=== PATIENT | male | born 1955 | race African-American/Black ===

== ENCOUNTER 2017-07-02 21:24 | Emergency (ER) | payer OTHER, BC ==
[2017-07-02 21:57] VITALS: BP 145/89; PULSE 104; TEMP 98; BMI 26.4
--- NOTE | 2017-07-02 23:04 | PDOC ---
History of Present Illness - General Chief Complaint: Chest Pain Stated Complaint: Allergic Reaction Time Seen by Provider: 07/02/17 21:46 - History of Present Illness Initial Comments: 07/02/17 22:57 61M w/ hx of GERD and an "irregular heartbeat" presenting with acute cannabis intoxication. Pt reports that he ate one brownie with marijuana today and experienced tachycardia, palpitations, tachypnea, several episodes of emesis, dry mouth, and jitteriness a half hour later. He reports not using marijuana since he was a teenager. He denies fevers, chills, headache, abdominal pain, and dysuria. 07/02/17 23:15 Past History - Past Medical History Allergies/Adverse Reactions: Allergies Allergy/AdvReac Type Severity Reaction Status Date / Time No Known Drug Allergies Allergy Verified 07/02/17 21:53 Home Medications: Ambulatory Orders Atenolol [Tenormin -] 25 mg PO DAILY 12/03/13 Omeprazole 40 mg PO HS 12/03/13 Oxycodone HCl/Acetaminophen [Percocet 5-325 mg Tablet] 1 tab PO Q4H PRN Tamsulosin HCl [Flomax -] 0.4 mg PO HS 12/03/13 Oxybutynin Chloride [Ditropan Xl] 10 mg PO DAILY 12/09/13 Oxycodone HCl/Acetaminophen [Percocet 5/325] 1 - 2 combo PO Q4HWA PRN #40 tablet 12/10/13 Anemia: No Asthma: No Cancer: No Cardiac Disorders: Yes (IRREGULAR HEART BEAT) CVA: No COPD: No CHF: No Dementia: No Diabetes: No GI Disorders: Yes (REFLUX,GASTRITIS,GERD) Disorders: Yes (ENLARGED PROSTATE) HTN: No Hypercholesterolemia: No Liver Disease: No Seizures: No Thyroid Disease: No Comment:: 07/02/17 23:01 PMH: GERD, irregular heartbeat PSH: ventral hernia repair, tendon transfer operation on L arm, meniscus surgery , 2 arthroscopic surgeries Meds: omeprazole, atenolol Allergies: NKDA Fam Hx: HTN and heart disease Social Hx: drinks alcohol socially, denies tobacco and other drug use 07/02/17 23:06 - Surgical History Abdominal Surgery: Yes (VENTRAL HERNIA REPAIR) Appendectomy: No Cardiac Surgery: No Cholecystectomy: No Lung Surgery: No Neurologic Surgery: No Orthopedic Surgery: Yes (BILAT ARTHROSCOPY, TWICE R KNEE) - Psycho/Social/Smoking Cessation Hx Suicidal Ideation: No Smoking History: Former smoker Have you smoked in the past 12 months: No If you are a former smoker, when did you quit?: 1974 Information on smoking cessation initiated: No Hx Alcohol Use: Yes (WEEKENDS) Drug/Substance Use Hx: No Substance Use Type: Alcohol, Marijuana Hx Substance Use Treatment: No Review of Systems - Review of Systems Comments:: 07/02/17 23:07 07/02/17 23:11 GENERAL: No fever, chills, night sweats, or weakness. HEAD, EYES, EARS, NOSE AND THROAT: No ear pain, or sore throat CARDIOVASCULAR: No chest pain, + palpitations RESPIRATORY: No cough, wheezing, or hemoptysis. GASTROINTESTINAL: + nausea, + vomiting, no diarrhea, constipation, or blood in the stool. GENITOURINARY: No dysuria, frequency, or urgency MUSCULOSKELETAL: No joint or muscle swelling or pain. SKIN: No rashes or pruritis ENDOCRINE: + increased thirst. No abnormal weight change NEUROLOGIC: No headache, dizziness, loss of consciousness *Physical Exam - Vital Signs Last Vital Signs Temp Pulse Resp BP Pulse Ox 98 F 104 H 20 145/89 93 L 07/02/17 21:53 07/02/17 21:53 07/02/17 21:53 07/02/17 21:53 07/02/17 21:53 - Physical Exam Comments: 07/02/17 23:12 GENERAL: Awake, fully oriented, in no acute distress HEAD: normocephalic, atraumatic HEENT: PERRLA, EOMI, eyes are bloodshot, dry mouth NECK: Normal ROM, supple, no lymphadenopathy, JVD, or masses HEART: tachycardic, no murmurs, rubs or gallops, peripheral pulses normal and equal bilaterally. LUNGS: CTAB, no wheezing, no rales ABDOMEN: Soft, nontender, nondistended, normoactive bowel sounds. No guarding, no rebound. No masses EXTREMITIES: Normal range of motion, no edema. SKIN: Warm, dry, no rashes or lesions noted. NEUROLOGICAL: Cranial nerves II through XII grossly intact. slow speech, + dysdiadochokinesia, + [id number] test, normal strength Medical Decision Making - Medical Decision Making 07/02/17 23:15 61M w/ hx of GERD and an "irregular heartbeat" presenting with acute cannabis intoxication with tachycardia, tachypnea, palpitations, nausea, and emesis. Exam notable for tachycardia, dry mouth, slowed speech, and + cerebellar signs. Given 2 versed, 25 benadryl, and 500cc of NS en route. -CBC: -CMP: -EK07/02/17 23:17
--- NOTE | 2017-07-02 23:14 | PDOC ---
Attending Attestation - Resident Resident Name: Art Ocampo - ED Attending Attestation I have performed the following: I have examined & evaluated the patient, The case was reviewed & discussed with the resident, I agree w/resident's findings & plan, Exceptions are as noted - HPI HPI: 07/02/17 23:07 Pt admits eat a pot brownie and then feeling palpitations and agitated. Pt brought in by EMS who gave Versed, Benadryl and IVF. Pt feeling better. - Physicial Exam PE: 07/02/17 23:06 *Physical Exam General Appearance: Yes: Appropriately Dressed. No: Apparent Distress, Intoxicated HEENT: positive: EOMI, KELVIN, Normal ENT Inspection, Normal Voice, TMs Normal, Pharynx Normal. negative: Pale Conjunctivae, Photophobia, Scleral Icterus (R), Scleral Icterus (L) Neck: positive: Trachea midline, Normal Thyroid, Supple. negative: Tender, Rigid, Carotid bruit, Stridor, Lymphadenopathy (R), Lymphadenopathy (L), Thyromegaly Respiratory/Chest: positive: Lungs Clear, Normal Breath Sounds. negative: Chest Tender, Respiratory Distress, Accessory Muscle Use, Labored Respiration, RES, Crackles, Rales, Rhonchi, Stridor, Wheezing, Dullness Cardiovascular: positive: tachycardic Regular Rate, S1, S2. negative: Edema, JVD, Murmur, Bradycardia, Tachycardia Vascular Pulses: Dorsalis-Pedis (R): 2+, Doralis-Pedis (L): 2+ Gastrointestinal/Abdominal: positive: Normal Bowel Sounds, Flat, Soft. negative : Tender, Organomegaly, Pulsatile Mass, Increased Bowel Sounds, Decreased BS, Distended, Guarding, Rebound, Hernia, Hepatomegaly, Spleenomegaly Lymphatic: negative: Adenopathy, Tenderness Musculoskeletal: positive: Normal Inspection. negative: CVA Tenderness, Decreased Range of Motion Extremity: positive: Normal Capillary Refill, Normal Inspection, Normal Range of Motion, Pelvis Stable. negative: Tender, Pedal Edema, Swelling, Erythema Integumentary: positive: Normal Color, Dry, Warm. 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 negative: EOM Palsy, Facial Droop, Sensory Deficit - Medical Decision Making 07/03/17 00:22 Pt hydrated. Labs stable. VSS are here in the ER.
[2017-07-02 23:40] LABS: BASOPHIL 0.1 % (0-2.0); EOSINOPHIL 0.2 % (0-4.5); MCH 31.4 pg (25.7-33.7); MCHC 33.2 g/dl (32.0-35.9); MEAN CELL VOLUME 94.8 fl (80-96); MEAN PLT VOLUME 7.8 fl (7.5-11.1); NEUTROPHILS 80.4 % (42.8-82.8); PLATELET COUNT 157 K/MM3 (134-434); WHITE BLOOD COUNT 5.9 K/mm3 (4.0-10.0)
[2017-07-03 00:01] LABS: ALBUMIN 3.8 g/dl (3.4-5.0); ALK PHOS 50 U/L (45-117); ANION GAP 8 (8-16); BILIRUBIN,TOTAL 0.8 mg/dL (0.2-1.0); CALCIUM 8.7 mg/dL (8.5-10.1); CO2 29 mmol/L (21-32); CREATININE 1.1 mg/dL (0.7-1.3); GLUCOSE,RANDOM 90 mg/dL (74-106); SGOT/AST 26 U/L (15-37); SGPT/ALT 33 U/L (12-78); TOT PROT 6.7 g/dl (6.4-8.2)
[2017-07-03] MEDS ORDERED: SODIUM CHLORIDE 1,000 ML IV STA (00:18)
--- NOTE | 2017-07-03 00:23 | PDOC ---
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, Fully Oriented, Alert ED Treatment Course - LABORATORY CBC & Chemistry Diagram: 07/02/17 23:15 07/02/17 23:15 - ADDITIONAL ORDERS Additional order review: Laboratory Results 07/02/17 23:15 Sodium 142 Potassium 4.3 Chloride 105 Carbon Dioxide 29 Anion Gap 8 BUN 17 D Creatinine 1.1 D Creat Clearance w eGFR > 60 Random Glucose 90 Calcium 8.7 Total Bilirubin 0.8 D AST 26 D ALT 33 D Alkaline Phosphatase 50 Total Protein 6.7 Albumin 3.8 07/02/17 23:15 RBC 4.10 MCV 94.8 MCHC 33.2 RDW 13.0 MPV 7.8 Neutrophils % 80.4 D Lymphocytes % 11.5 D Monocytes % 7.8 Eosinophils % 0.2 D Basophils % 0.1 Medical Decision Making - Medical Decision Making 07/03/17 00:23 Patient is a 63 y.o. male who presents with palpitations and chest pain following ingestion of a cannabis brownie given to him by his neighbor.. Patient was initially tachycardic and given 1 L IV NS as well as Benadryl and Versed for symptomatic relief. Patient's tachycardia resolved during course of ED admission and his only complaint at discharge was hunger. Patient was counseled on the importance of avoiding cannabis in the future given his adverse reaction and counseled on the importance of avoiding peer pressure. *DC/Admit/Observation/Transfer Diagnosis at time of Disposition: Acute cannabis intoxication delirium without use disorder - Discharge Dispostion Disposition: HOME Condition at time of disposition: Improved Admit: No - Patient Instructions Printed Discharge Instructions: DI for Chest Pain, DI for Atypical Chest Pain Additional Instructions: Please return to the Emergency Department should you experience severe pressure like chest pain, shortness of breath, excessive sweating or confusion. Please consider refraining from future cannabis use given your physical reaction. - Attestations Physician Attestion: 07/03/17 00:32 I, Dr. Antonia Ponce, attest that this document has been prepared under my direction and personally reviewed by me in its entirety. I further attest, that it accurately reflects all work, treatment, procedures and medical decision -making performed by me.
--- NOTE | 2017-07-03 11:56 | EKG ---
Test Reason : Blood Pressure : / mmHG Vent. Rate : 099 BPM Atrial Rate : 099 BPM P-R Int : 142 ms QRS Dur : 078 ms QT Int : 348 ms P-R-T Axes : 031 -27 -01 degrees QTc Int : 446 ms NORMAL SINUS RHYTHM MODERATE VOLTAGE CRITERIA FOR LVH, MAY BE NORMAL VARIANT LEFT AXIS DEVIATION BORDERLINE ECG WHEN COMPARED WITH ECG OF 03-DEC-2013 16:43, QT HAS LENGTHENED REPEAT EKG IF CLINICALLY INDICATED Confirmed by POLLO GRIFFIN MD ([id number]) on 07/03/2017 11:55:24 AM Referred By: Confirmed By:POLLO GRIFFIN MD
== END 2017-07-03 01:27 | disposition home or self-care (01) ==
LOC: JER 21:24
PROC: 3E0337Z Introduction of Electrolytic and Water Balance Substance into Peripheral Vein, Percutaneous Approach (ICD-10-PCS; principal; 2017-07-02)
DX: F12.921 Cannabis use, unspecified with intoxication delirium (principal); K21.9 Gastro-esophageal reflux disease without esophagitis; I49.9 Cardiac arrhythmia, unspecified; N40.0 Benign prostatic hyperplasia without lower urinary tract symptoms; Z87.891 Personal history of nicotine dependence
CPT/HCPCS: 36415; 80053; 85025; 93005; 93010; 99282-25

== ENCOUNTER 2017-07-19 23:19 | Emergency (ER) | payer OTHER, BC ==
[2017-07-19 23:37] VITALS: BP 107/77; PULSE 97; TEMP 98.2; BMI 23.6
[2017-07-20] MEDS ORDERED: PANTOPRAZOLE SODIUM 40 MG in SODIUM CHLORIDE 100 ML IVPB ONE (00:04)
[2017-07-20] MEDS ORDERED: ONDANSETRON 4 MG/2 ML VIAL IVPUSH ONE (00:04)
[2017-07-20] MEDS ORDERED: LIDOCAINE HCL 1%, 10 MG/ML (50 mL VIAL) INF ONE (00:05)
[2017-07-20] MEDS ORDERED: FAMOTIDINE 20 MG/50 ML IVPB 50 ML IVPB ONE ×2 (00:05→00:16)
[2017-07-20 00:08] LABS: BASOPHIL 0.4 % (0-2.0); EOSINOPHIL 1.7 % (0-4.5); MCH 31.8 pg (25.7-33.7); MCHC 33.6 g/dl (32.0-35.9); MEAN CELL VOLUME 94.6 fl (80-96); MEAN PLT VOLUME 7.6 fl (7.5-11.1); NEUTROPHILS 61.9 % (42.8-82.8); PLATELET COUNT 181 K/MM3 (134-434); RDW 12.8 % (11.9-15.9); WHITE BLOOD COUNT 3.6 K/mm3 (4.0-10.0)
[2017-07-20] MEDS ORDERED: ONDANSETRON 4 MG/2 ML VIAL ONE (00:16)
[2017-07-20] MEDS ORDERED: PANTOPRAZOLE SODIUM 40 MG VIAL ONE (00:16)
[2017-07-20 00:42] LABS: ALBUMIN 4.1 g/dl (3.4-5.0); AMYLASE 57 U/L (25-115); ANION GAP 8 (8-16); BILIRUBIN,TOTAL 0.6 mg/dL (0.2-1.0); CALCIUM 8.8 mg/dL (8.5-10.1); CO2 28 mmol/L (21-32); CREATININE 1.5 mg/dL (0.7-1.3); GLUCOSE,RANDOM 97 mg/dL (74-106); SGOT/AST 41 U/L (15-37); SGPT/ALT 45 U/L (12-78); TOT PROT 7.2 g/dl (6.4-8.2)
[2017-07-20 00:45] LABS: ALK PHOS 51 U/L (45-117); CPK 905 IU/L (39-308); TROPONIN I < 0.02 ng/ml (0.00-0.05)
--- NOTE | 2017-07-20 00:56 | PDOC ---
History of Present Illness - General Chief Complaint: Nausea/Vomiting Stated Complaint: ACID REFLUX Time Seen by Provider: 07/19/17 23:46 History Source: Patient Exam Limitations: No Limitations - History of Present Illness Travel History: No Initial Comments: 07/20/17 00:51 61yo Male patient w/ PmHx: HTN, GERD presents to ED c/o belching, heartburn, n/v , and abdominal pain beginning this morning. Patient reports similar symptoms previously and was treated in ED and sent home. Patient denies CP, Diff breathing, fever, rash, or any other complaints at this time. Timing/Duration: reports: constant Quality: reports: moderate, burning Abdominal Pain Onset Location: reports: generalized abdomen Pain Radiation: reports: no radiation Activities at Onset: reports: none Treatment Prior to Arrive: worse with: analgesics, antacids, cold pack, heat, laxative, enema, other Aggravating Factors: worse with: None, Defecation, Eating, Emotional upset, Exertion, [place], Movement, Voiding, Change in position Alleviating Factors: worse with: None, Belching, Shallow Breathing, Defecation, Eating, Holding Breath, Passing Gas, Change in Position, Rest, Voiding, Vomiting Past History - Travel Traveled outside of the country in the last 30 days: No Close contact w/someone who was outside of country & ill: No - Past Medical History Allergies/Adverse Reactions: Allergies Allergy/AdvReac Type Severity Reaction Status Date / Time No Known Drug Allergies Allergy Verified 07/19/17 23:36 Home Medications: Ambulatory Orders Atenolol [Tenormin -] 25 mg PO DAILY 12/03/13 Omeprazole 40 mg PO HS 12/03/13 Tamsulosin HCl [Flomax -] 0.4 mg PO HS 12/03/13 Oxybutynin Chloride [Ditropan Xl] 10 mg PO DAILY 12/09/13 Oxycodone HCl/Acetaminophen [Percocet 5/325] 1 - 2 combo PO Q4HWA PRN #40 tablet 12/10/13 Acetaminophen W/ Codeine #3 [Tylenol # 3 -] 1 tab PO ONCE 07/20/17 Famotidine [Pepcid] 40 mg PO BID #14 tablet 07/20/17 Losartan Potassium [Cozaar -] 25 mg PO DAILY 07/20/17 Ondansetron [Zofran Odt -] 4 mg SL Q6H PRN #30 od.tablet 07/20/17 Pantoprazole Sodium [Protonix -] 40 mg PO DAILY #30 tablet.ec 07/20/17 Rabeprazole Sodium [Aciphex] 20 mg PO ASDIR 07/20/17 Anemia: No Asthma: No Cancer: No Cardiac Disorders: Yes (IRREGULAR HEART BEAT) CVA: No COPD: No CHF: No Dementia: No Diabetes: No GI Disorders: Yes (REFLUX,GASTRITIS,GERD) Disorders: Yes (ENLARGED PROSTATE) HTN: No Hypercholesterolemia: No Liver Disease: No Seizures: No Thyroid Disease: No - Surgical History Abdominal Surgery: Yes (VENTRAL HERNIA REPAIR) Appendectomy: No Cardiac Surgery: No Cholecystectomy: No Lung Surgery: No Neurologic Surgery: No Orthopedic Surgery: Yes (BILAT ARTHROSCOPY, TWICE R KNEE) - Psycho/Social/Smoking Cessation Hx Suicidal Ideation: No Smoking History: Never smoked Have you smoked in the past 12 months: No If you are a former smoker, when did you quit?: 1974 Information on smoking cessation initiated: No Hx Alcohol Use: No Drug/Substance Use Hx: No Substance Use Type: Alcohol, Marijuana Hx Substance Use Treatment: No Abd/GI Specific PMHX - Complaint Specific PMHX Colitis: No Diverticulitis: No Gall Bladder Disease: No GERD: No Hepatitis: No Irritable Bowel Synd (IBS): No Pancreatitis: No GI Ulcer Disease: No Review of Systems - Review of Systems Able to Perform ROS?: Yes Is the patient limited Italian proficient: No Respiratory: No: Cough, Shortness of Breath, Wheezing, Productive cough Cardiac (ROS): No: Chest Pain, Edema, Irregular Heart Rate, Lightheadedness, Palpitations, Syncope, Chest Tightness ABD/GI: Yes: Abdominal Distended, Nausea, Vomiting, Abdominal cramping, Other ( Belching). No: Abd. Pain w/ defecation, Constipated, Diarrhea, Difficulty Swallowing, Poor Appetite, Poor Fluid Intake, Rectal Bleeding All Other Systems: Reviewed and Negative *Physical Exam - Vital Signs Last Vital Signs Temp Pulse Resp BP Pulse Ox 98.2 F 97 H 20 107/77 98 07/19/17 23:36 07/19/17 23:36 07/19/17 23:36 07/19/17 23:36 07/19/17 23:36 - Physical Exam General Appearance: Yes: Nourished, Appropriately Dressed, Mild Distress. No: Apparent Distress, Moderate Distress, Severe Distress Neck: positive: Trachea midline, Supple. negative: Decreased range of motion, Stridor, Lymphadenopathy (R), Lymphadenopathy (L), Rigidity Respiratory/Chest: positive: Lungs Clear, Normal Breath Sounds. negative: Chest Tender, Respiratory Distress, Accessory Muscle Use, Labored Respiration, Rapid RR, Crackles, Stridor, Wheezing Cardiovascular: positive: Regular Rhythm, Regular Rate Gastrointestinal/Abdominal: positive: Soft, Decreased BS, Distended. negative: Tender, Guarding, Rebound, Tenderness Musculoskeletal: positive: Normal Inspection. negative: CVA Tenderness Extremity: positive: Normal Capillary Refill, Normal Inspection, Normal Range of Motion. negative: Pedal Edema, Swelling, Calf Tenderness, Erythema, Inflammation Integumentary: positive: Normal Color, Dry, Warm. 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, Fully Oriented, Alert, Normal Mood/ Affect, Normal Response, Motor Strength 5/5 Heart Score/ECG Review - History History: Slightly suspicious - Electrocardiogram EKG: Normal - Age Age: 45-65 - Risk Factors Risk Factors Heart Score: Yes Hx Hypercholesterolemia, Yes Hx Hypertension Based on the list above the patient has:: 1-2 risk factors - Troponin Troponin: </= normal limit - Score Heart Score - Total: 2 - ECG Impressions Normal ECG: Yes Non-specific ST Elevation: No Ischemic Changes: No Torsades lupe Pointes: No WPW: No ED Treatment Course - LABORATORY CBC & Chemistry Diagram: 07/20/17 00:04 07/20/17 00:04 - ADDITIONAL ORDERS Additional order review: Laboratory Results 07/20/17 00:04 Sodium 140 Potassium 3.9 Chloride 104 Carbon Dioxide 28 Anion Gap 8 BUN 15 Creatinine 1.5 H D Creat Clearance w eGFR 47.42 Random Glucose 97 Calcium 8.8 Total Bilirubin 0.6 D AST 41 H D ALT 45 D Alkaline Phosphatase 51 Creatine Kinase 905 H Troponin I < 0.02 Total Protein 7.2 Albumin 4.1 Total Amylase 57 Lipase 63 L 07/20/17 00:04 RBC 4.14 MCV 94.6 MCHC 33.6 RDW 12.8 MPV 7.6 Neutrophils % 61.9 D Lymphocytes % 25.9 D Monocytes % 10.1 Eosinophils % 1.7 D Basophils % 0.4 D - RADIOLOGY Radiology Studies Ordered: Category Date Time Status ABDOMEN & PELVIS CT W/O CONTR [CT] Stat CT Scan 07/20/17 00:05 Ordered - Medications Given in the ED: ED Medications Discontinued Medications Generic Name Dose Route Start Last Admin Trade Name Freq PRN Reason Stop Dose Admin Pantoprazole Sodium 40 mg/ 100 mls @ 200 mls/hr 07/20/17 00:04 07/20/17 00:23 Sodium Chloride IVPB 07/20/17 00:33 200 mls/hr ONCE ONE Administration Famotidine/Sodium Chloride 50 mls @ 100 mls/hr 07/20/17 00:05 07/20/17 00:23 Pepcid 20 Mg Premixed Ivpb - IVPB 07/20/17 00:34 100 mls/hr ONCE ONE Administration Lidocaine HCl 3 ml 07/20/17 00:05 07/20/17 00:34 Xylocaine 1% INF 07/20/17 00:06 3 ml ONCE ONE Administration Ondansetron HCl 4 mg 07/20/17 00:04 07/20/17 00:23 Zofran Injection IVPUSH 07/20/17 00:05 4 mg ONCE ONE Administration *DC/Admit/Observation/Transfer Diagnosis at time of Disposition: Gastroesophageal reflux disease Qualifiers: Esophagitis presence: without esophagitis Qualified Code(s): K21.9 - Gastro- esophageal reflux disease without esophagitis - Discharge Dispostion Disposition: HOME Condition at time of disposition: Improved Admit: No - Prescriptions Prescriptions: Famotidine [Pepcid] 40 mg PO BID #14 tablet Pantoprazole Sodium [Protonix -] 40 mg PO DAILY #30 tablet.ec Ondansetron [Zofran Odt -] 4 mg SL Q6H PRN #30 od.tablet PRN Reason: Nausea - Patient Instructions Printed Discharge Instructions: DI for Vomiting -- Adult Additional Instructions: Follow up with your primary care provider this week. Call to schedule appointment. Take medications as prescribed. Return if any concerns for further evaluation. Print Language: MALTESE
[2017-07-20 01:57] LABS: URINE APPEARANCE CLEAR; URINE BILIRUBIN NEGATIVE (NEGATIVE); URINE BLOOD NEGATIVE (NEGATIVE); URINE COLOR COLORLESS; URINE GLUCOSE (UA) NEGATIVE (NEGATIVE); URINE KETONE NEGATIVE (NEGATIVE); URINE LEUK ESTERASE NEGATIVE (NEGATIVE); URINE NITRITE NEGATIVE (NEGATIVE); URINE PROTEIN NEGATIVE (NEGATIVE); URINE UROBILINOGEN NEGATIVE mg/dL (0.2-1.0)
--- NOTE | 2017-07-21 13:58 | EKG ---
Test Reason : Blood Pressure : / mmHG Vent. Rate : 076 BPM Atrial Rate : 076 BPM P-R Int : 142 ms QRS Dur : 078 ms QT Int : 406 ms P-R-T Axes : 048 -26 -05 degrees QTc Int : 456 ms NORMAL SINUS RHYTHM BASELINE ARTIFACTS MINIMAL VOLTAGE CRITERIA FOR LVH, MAY BE NORMAL VARIANT BORDERLINE ECG WHEN COMPARED WITH ECG OF 02-JUL-2017 22:11, REPEAT EKG IF CLINICALLY INDICATED Confirmed by POLLO GRIFFIN MD ([id number]) on 07/21/2017 1:58:09 PM Referred By: Confirmed By:POLLO GRIFFIN MD
== END 2017-07-20 02:14 | disposition home or self-care (01) ==
LOC: JER 23:19
PROC: 3E033GC Introduction of Other Therapeutic Substance into Peripheral Vein, Percutaneous Approach (ICD-10-PCS; principal; 2017-07-19)
PROC: 3E033NZ Introduction of Analgesics, Hypnotics, Sedatives into Peripheral Vein, Percutaneous Approach (ICD-10-PCS; 2017-07-19)
DX: K21.9 Gastro-esophageal reflux disease without esophagitis (principal)
CPT/HCPCS: 36415; 74176-TC; 80053; 81003; 82150; 82553; 83690; 84484; 85025; 93005; 93010; 99283-25

== ENCOUNTER 2017-09-09 18:51 | Emergency (ER) | payer OTHER, BC ==
[2017-09-09 18:57] VITALS: BMI 28.1
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
[2017-09-09] MEDS ORDERED: DIPHTH,PERTUSS(ACELL),TET 0.5 ML DISP.SYRIN IM ONE (19:34)
[2017-09-09] MEDS ORDERED: CLINDAMYCIN 600MG PREMIX IVPB 50 ML IVPB ONE ×2 (19:35→19:50)
[2017-09-09] MEDS ORDERED: ONDANSETRON 4 MG/2 ML VIAL IVPUSH ONE (19:35)
[2017-09-09] MEDS ORDERED: FAMOTIDINE 20 MG/50 ML IVPB 50 ML IVPB ONE ×2 (19:35→19:48)
[2017-09-09] MEDS ORDERED: LIDOCAINE 1%/EPI 1:100000 (20 ML MULTI DOSE VIAL) IJ ONE (19:36)
[2017-09-09] MEDS ORDERED: LIDOCAINE 1%/EPI 1:100000 (20 ML MULTI DOSE VIAL) ONE (19:47)
[2017-09-09] MEDS ORDERED: ONDANSETRON 4 MG/2 ML VIAL ONE (19:48)
[2017-09-09 20:11] LABS: BASOPHIL 0.4 % (0-2.0); EOSINOPHIL 1.4 % (0-4.5); MCH 31.4 pg (25.7-33.7); MCHC 33.4 g/dl (32.0-35.9); MEAN CELL VOLUME 93.9 fl (80-96); MEAN PLT VOLUME 7.7 fl (7.5-11.1); PLATELET COUNT 162 K/MM3 (134-434); RDW 13.2 % (11.9-15.9); WHITE BLOOD COUNT 4.7 K/mm3 (4.0-10.0)
[2017-09-09] MEDS ORDERED: IBUPROFEN 600 MG TABLET (FP) PO ONE ×2 (20:58→22:11)
[2017-09-09 21:31] LABS: ALBUMIN 3.4 g/dl (3.4-5.0); ANION GAP 5 (8-16); BILIRUBIN,TOTAL 0.4 mg/dL (0.2-1.0); CO2 29 mmol/L (21-32); CREATININE 1.1 mg/dL (0.7-1.3); GLUCOSE,RANDOM 95 mg/dL (74-106); SGOT/AST 31 U/L (15-37); SGPT/ALT 31 U/L (12-78); TOT PROT 6.5 g/dl (6.4-8.2)
[2017-09-09 21:32] LABS: ALK PHOS 50 U/L (45-117)
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
[2017-09-10 00:19] VITALS: BP 152/74; PULSE 87; TEMP 98.5
--- NOTE | 2017-09-10 10:07 | EKG ---
Test Reason : Blood Pressure : / mmHG Vent. Rate : 074 BPM Atrial Rate : 074 BPM P-R Int : 138 ms QRS Dur : 078 ms QT Int : 394 ms P-R-T Axes : 050 -24 009 degrees QTc Int : 437 ms SINUS RHYTHM WITH OCCASIONAL PREMATURE VENTRICULAR COMPLEXES MODERATE VOLTAGE CRITERIA FOR LVH, MAY BE NORMAL VARIANT BORDERLINE ECG WHEN COMPARED WITH ECG OF 20-JUL-2017 01:56, PREMATURE VENTRICULAR COMPLEXES ARE NOW PRESENT Confirmed by STACIA BUCK, TABITHA ([id number]) on 09/10/2017 10:07:11 AM Referred By: Confirmed By:TABITHA PALOMO MD
== END 2017-09-10 00:19 | disposition home or self-care (01) ==
LOC: JER 18:51
PROC: 0JQ10ZZ Repair Face Subcutaneous Tissue and Fascia, Open Approach (ICD-10-PCS; principal; 2017-09-09)
PROC: 3E0234Z Introduction of Serum, Toxoid and Vaccine into Muscle, Percutaneous Approach (ICD-10-PCS; 2017-09-09)
PROC: 3E03329 Introduction of Other Anti-infective into Peripheral Vein, Percutaneous Approach (ICD-10-PCS; 2017-09-09)
PROC: 3E033GC Introduction of Other Therapeutic Substance into Peripheral Vein, Percutaneous Approach (ICD-10-PCS; 2017-09-09)
DX: S01.112A Laceration without foreign body of left eyelid and periocular area, initial encounter (principal); Y00.XXXA Assault by blunt object, initial encounter; Y93.89 Activity, other specified; Y92.89 Other specified places as the place of occurrence of the external cause; Y99.8 Other external cause status; I10 Essential (primary) hypertension; K21.9 Gastro-esophageal reflux disease without esophagitis; N40.0 Benign prostatic hyperplasia without lower urinary tract symptoms
CPT/HCPCS: 12011-25; 36415; 70450-TC; 70486-TC; 71020-TC; 72125-TC; 73130-TC-LT; 73130-TC-RT; 80053; 85025; 90471; 90715; 93005; 93010; 96365; 96367; 99284-25

== ENCOUNTER 2017-09-15 14:57 | Emergency (ER) | payer OTHER, BC ==
[2017-09-15 15:09] VITALS: BP 127/81; PULSE 90; TEMP 98.3; BMI 26.2
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
== END 2017-09-15 15:53 | disposition home or self-care (01) ==
LOC: JERFT 14:57
DX: Z48.02 Encounter for removal of sutures (principal)
CPT/HCPCS: 99281-25

== ENCOUNTER 2018-02-24 20:57 | Emergency (ER) | payer OTHER, BC ==
[2018-02-24 21:06] VITALS: PULSE 84; TEMP 98.1; BMI 26.4
--- NOTE | 2018-02-24 21:44 | PDOC ---
Attending Attestation - Resident Resident Name: DonellfrancialateshaMarty - HPI HPI: 02/24/18 22:41 Pt presents to the ED complaining of generalized malaise accompanied by epigastric pain and nausea and vomiting that started today. Patient describes the pain as burning, and has a long standing history of GERD, but reports that this pain is different from his chronic GERD pain. Denies fevers. - Physicial Exam PE: 02/24/18 22:48 Agree with resident exam. Abdomen is obese, with very mild tenderness to deep palpation in the epigastrium, without guarding or rebound. Patient appears comfortable and is in no acute distress. - Medical Decision Making 02/24/18 22:50 Pt presents to the ED complaining of a one day history of burning epigastric pain. Differential includes GERD, biliary disease, pancreatitis, PUD less likely ACS or AAA. Will check labs and RUQ US, treat with pepcid and reassess.
[2018-02-24] MEDS ORDERED: SODIUM CHLORIDE 0.9% 1000 ML INFUS.BAG IV ONE (21:53)
[2018-02-24] MEDS ORDERED: PANTOPRAZOLE SODIUM 40 MG in SODIUM CHLORIDE 100 ML IVPB ONE (21:53)
[2018-02-24] MEDS ORDERED: PANTOPRAZOLE SODIUM 40 MG/100 ML BAG IVPB ONE (22:20)
--- NOTE | 2018-02-24 22:26 | PDOC ---
History of Present Illness - General Chief Complaint: Nausea/Vomiting Stated Complaint: NAUSEA/VOMITING Time Seen by Provider: 02/24/18 21:42 History Source: Patient Exam Limitations: No Limitations - History of Present Illness Initial Comments: 02/24/18 22:15 The patient is a 62M with a PMH of HTN and GERD who presents to the ER with complaints of "feeling sick". The patient states that he began to feel nausea, vomited 3 times NBNB, and has abdominal pain. He describes his abdominal pain as dull, periumbilical, nonradiating pain which is constant and then becomes intermittently sharp. His last BM was yesterday. He has had an abdominal hernia repaired in the past. He does admit to being more constipated recently. Denies CP, SOB, fever but states he has chills. Past History - Past Medical History Allergies/Adverse Reactions: Allergies Allergy/AdvReac Type Severity Reaction Status Date / Time No Known Drug Allergies Allergy Verified 02/24/18 21:02 Home Medications: Ambulatory Orders Atenolol [Tenormin -] 25 mg PO DAILY 12/03/13 Omeprazole 40 mg PO HS 12/03/13 Tamsulosin HCl [Flomax -] 0.4 mg PO HS 12/03/13 Famotidine [Pepcid] 40 mg PO BID #14 tablet 07/20/17 Ondansetron [Zofran Odt -] 4 mg SL Q6H PRN #30 od.tablet 07/20/17 Pantoprazole Sodium [Protonix -] 40 mg PO DAILY #30 tablet.ec 07/20/17 Rabeprazole Sodium [Aciphex] 20 mg PO ASDIR 07/20/17 Anemia: No Asthma: No Cancer: No Cardiac Disorders: Yes (IRREGULAR HEART BEAT) CVA: No COPD: No CHF: No Dementia: No Diabetes: No GI Disorders: Yes (REFLUX,GASTRITIS,GERD) Disorders: Yes (ENLARGED PROSTATE) HTN: Yes Hypercholesterolemia: Yes Liver Disease: No Seizures: No Thyroid Disease: No - Surgical History Abdominal Surgery: Yes (VENTRAL HERNIA REPAIR) Appendectomy: No Cardiac Surgery: No Cholecystectomy: No Lung Surgery: No Neurologic Surgery: No Orthopedic Surgery: Yes (BILAT ARTHROSCOPY, TWICE R KNEE) - Suicide/Smoking/Psychosocial Hx Smoking History: Former smoker Have you smoked in the past 12 months: No If you are a former smoker, when did you quit?: 1974 Information on smoking cessation initiated: No Hx Alcohol Use: No Drug/Substance Use Hx: No Substance Use Type: Alcohol, Marijuana Hx Substance Use Treatment: No Review of Systems - Review of Systems Able to Perform ROS?: Yes Comments:: 02/24/18 22:26 GENERAL/CONSTITUTIONAL: Positive for chills. No fever. No weakness. HEAD, EYES, EARS, NOSE AND THROAT: No change in vision. No ear pain or discharge. No sore throat. CARDIOVASCULAR: No chest pain, palpitations, or lightheadedness. RESPIRATORY: Positive for cough. No wheezing, shortness of breath, or hemoptysis. GASTROINTESTINAL: Positive for nausea, vomiting, abdominal pain, and constipation. No diarrhea. GENITOURINARY: No dysuria, frequency, hematuria, or change in urination. MUSCULOSKELETAL: No joint or muscle swelling or pain. No neck or back pain. SKIN: No rash or lesions. NEUROLOGIC: No headache, numbness, tingling, weakness, loss of consciousness, or change in strength/sensation. ENDOCRINE: No increased thirst. No abnormal weight change. HEMATOLOGIC/LYMPHATIC: No anemia, easy bleeding, or history of blood clots. ALLERGIC/IMMUNOLOGIC: No hives or skin allergy. Is the patient limited Hebrew proficient: No *Physical Exam - Vital Signs Last Vital Signs Temp Pulse Resp BP Pulse Ox 98.1 F 84 18 174/99 98 02/24/18 21:02 02/24/18 21:02 02/24/18 21:02 02/24/18 21:02 02/24/18 21:02 - Physical Exam Comments: 02/24/18 22:34 Physical Exam GENERAL: Well developed, well nourished. Awake and alert. No acute distress. HEENT: Normocephalic, atraumatic. Hearing grossly normal. Moist mucous membranes. PERRLA, EOMI. No conjunctival pallor. Sclera are non-icteric. Oropharynx is clear. NECK: Supple. Full ROM. No JVD. Carotid pulses 2+ and symmetric, without bruits. No thyromegaly. No lymphadenopathy. CARDIOVASCULAR: Regular rate and rhythm. No murmurs, rubs, or gallops. Distal pulses are 2+ and symmetric. PULMONARY: No evidence of respiratory distress. Lungs clear to auscultation bilaterally. No wheezing, rales or rhonchi. ABDOMINAL: Soft. Tenderness to deep palpation with guarding in periumbilical and epigastric abdomen. GENITOURINARY: No CVA tenderness bilaterally. MUSCULOSKELETAL: Normal range of motion at all joints. No bony deformities or tenderness. EXTREMITIES: No cyanosis. No clubbing. No edema. No calf tenderness. SKIN: Warm and dry. Normal capillary refill. No rashes. No jaundice. NEUROLOGICAL: Alert, awake, appropriate. Cranial nerves 2-12 intact. Normal speech. Gait is normal without ataxia. PSYCHIATRIC: Cooperative. Good eye contact. Appropriate mood and affect. Heart Score/ECG Review #1 ECG reviewed & interpreted by me at: 22:43 General ECG Interpretation: Sinus Rhythm, Normal Rate, Normal Intervals, No acute ischemic changes Compared to previous ECG there are: No significant change 02/24/18 23:39 NSR Rate 77 WI 147 QRS 74 QTc 432 No acute ischemic changes noted No changes from previous EKG ED Treatment Course - LABORATORY CBC & Chemistry Diagram: 02/24/18 22:30 02/24/18 23:00 - RADIOLOGY Radiology Studies Ordered: Category Date Time Status ABDOMEN & PELVIS CT WITH CONTR [CT] Stat CT Scan 02/24/18 21:58 Ordered CHEST PA & LAT [RAD] Stat Radiology 02/24/18 21:53 Ordered ABDOMEN US -LIMITED [US] Stat Ultrasound 02/24/18 21:58 Ordered Medical Decision Making - Medical Decision Making 02/24/18 22:34 The patient is a 62M with a PMH of HTN and GERD who presents to the ER with nausea, vomiting, and abdominal pain. Will r/o ACS with EKG and troponin. Pending US RUQ and CTAP to evaluate for other pathologies. 02/24/18 23:39 Pt's EKG NSR. No acute changes. CBC WNL. Pending CMP, trop, U/S RUQ, and CTAP. 02/24/18 23:59 Pt signed out to [facility] Dick team. *DC/Admit/Observation/Transfer Diagnosis at time of Disposition: Abdominal pain - Discharge Dispostion Disposition: HOME Condition at time of disposition: Good - Referrals Referrals: Jamie Amezquita MD [Staff Physician] - - Patient Instructions Printed Discharge Instructions: DI for Abdominal Pain-Adult, DI for Epigastric Pain Additional Instructions: You were evaluated today for abdominal pain. All of your labs, an ultrasound and a cat scan showed no concerning findings. You can continue to use your current over the counter medications for relief, but please follow-up with a primary care doctor (referral provided to Dr. Amezquita ) for further evaluation of your abdominal pain as well as evaluation of your general health. Return to the Emergency Department for any new/worsening/concerning findings. - Post Discharge Activity
[2018-02-24 22:43] LABS: BASO % 0.3 % (0-2.0); EOS % 0.7 % (0-4.5); HEMATOCRIT 39.6 % (35.4-49); HEMOGLOBIN 13.3 GM/dL (11.7-16.9); LYMPH % 21.4 % (8-40); MCH 31.3 pg (25.7-33.7); MCHC 33.5 g/dl (32.0-35.9); MEAN CELL VOLUME 93.4 fl (80-96); MEAN PLT VOLUME 8.5 fl (7.5-11.1); MONO % 9.5 % (3.8-10.2); NEUT % 68.1 % (42.8-82.8); PLATELET COUNT 175 K/MM3 (134-434); RBC 4.24 M/mm3 (4.00-5.60); RDW 13.9 % (11.9-15.9); WHITE BLOOD COUNT 3.3 K/mm3 (4.0-10.0)
[2018-02-24 22:55] LABS: INR 1.09 (0.82-1.09); PROTHROMBIN TIME (PATIENT) 12.3 SEC (9.98-11.88)
[2018-02-24 23:42] LABS: ALBUMIN 3.8 g/dl (3.4-5.0); ANION GAP 8 (8-16); BILIRUBIN,TOTAL 0.5 mg/dL (0.2-1.0); BLOOD UREA NITROGEN 12 mg/dL (7-18); CALCIUM 8.5 mg/dL (8.5-10.1); CHLORIDE 106 mmol/L (98-107); CO2 27 mmol/L (21-32); CREATININE 1.1 mg/dL (0.7-1.3); GLUCOSE,RANDOM 80 mg/dL (74-106); POTASSIUM 4.1 mmol/L (3.5-5.1); SGOT/AST 27 U/L (15-37); SGPT/ALT 33 U/L (12-78); SODIUM 141 mmol/L (136-145); TOT PROT 6.9 g/dl (6.4-8.2)
[2018-02-24 23:43] LABS: ALK PHOS 50 U/L (45-117)
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
[2018-02-25 01:18] VITALS: BP 150/96
--- NOTE | 2018-02-25 23:51 | EKG ---
Test Reason : Blood Pressure : / mmHG Vent. Rate : 077 BPM Atrial Rate : 077 BPM P-R Int : 146 ms QRS Dur : 074 ms QT Int : 382 ms P-R-T Axes : 047 -25 -07 degrees QTc Int : 432 ms NORMAL SINUS RHYTHM WITH SINUS ARRHYTHMIA MODERATE VOLTAGE CRITERIA FOR LVH, MAY BE NORMAL VARIANT BORDERLINE ECG WHEN COMPARED WITH ECG OF 09-SEP-2017 20:42, PREMATURE VENTRICULAR COMPLEXES ARE NO LONGER PRESENT Confirmed by STACIA BUCK, TABITHA ([id number]) on 02/25/2018 11:51:40 PM Referred By: Confirmed By:TABITHA PALOMO MD
== END 2018-02-25 02:18 | disposition home or self-care (01) ==
LOC: JER 20:57
PROC: 3E033GC Introduction of Other Therapeutic Substance into Peripheral Vein, Percutaneous Approach (ICD-10-PCS; principal; 2018-02-24)
DX: R10.84 Generalized abdominal pain (principal); I10 Essential (primary) hypertension; K21.9 Gastro-esophageal reflux disease without esophagitis; E78.00 Pure hypercholesterolemia, unspecified; N40.0 Benign prostatic hyperplasia without lower urinary tract symptoms
CPT/HCPCS: 36415; 71046-TC-FY; 74177-TC; 76705-TC; 80053; 82550; 82553; 84484; 85025; 85610; 93005; 93010; 96365; 99282-25; J7030

== ENCOUNTER 2018-03-22 16:15 | Observation (INO) | payer OTHER, BC ==
--- NOTE | 2018-03-22 16:55 | PDOC ---
History of Present Illness - General History Source: Patient Exam Limitations: No Limitations <Mirella Grossman - Last Filed: 03/23/18 00:39> - General History Source: Patient Exam Limitations: No Limitations - History of Present Illness Initial Comments: 03/22/18 17:48 The patient is a 62 year old male with past medical history of hypertension, dysrhythmia, and longstanding gastritis (with nausea, vomiting, and reflux about 2-3x/month) who presents to the ED with complaints of overall malaise for the past two days. He reports intermittent nausea and reporting one episode of non-bloody/non-bilious emesis two days ago. Since then he reports having periodic burning epigastric pain, general fatigue, intermittent irregular heartbeat and diaphoresis. The patient adds he was at his PCPs office today and reports becoming lightheaded and having blurred vision when he stood up. He denies any room spinning sensation or LOC. He denies any fever, cough, shortness of breath, chest pain, or urinary symptoms. The patient has been fully evaluated in the past for his GI symptoms including multiple benign endoscopies. The patient was seen last month in the ED for similar symptoms where an abdominal ultrasound and CT were performed. They only demonstrated fatty liver. He was discharged home. Patient reports last having a stress test 3 years ago. Surgeries: periumbilical hernia x2 Social: Former smoker (quit in the 70s), reports social alcohol use Family: Brother, age 67, had a heart attack last year. PCP: Dr. Amezquita. Used to follow up with Dr. Calderón, who is now retired. <Viktoria Prather - Last Filed: 03/23/18 00:50> - General Chief Complaint: Lightheaded Stated Complaint: DIZZINESS Past History - Past Medical History Anemia: No Asthma: No Cancer: No Cardiac Disorders: Yes (IRREGULAR HEART BEAT) CVA: No COPD: No CHF: No Dementia: No Diabetes: No GI Disorders: Yes (REFLUX,GASTRITIS,GERD) Disorders: Yes (ENLARGED PROSTATE) HTN: Yes Hypercholesterolemia: Yes Liver Disease: No Seizures: No Thyroid Disease: No - Surgical History Abdominal Surgery: Yes (VENTRAL HERNIA REPAIR) Appendectomy: No Cardiac Surgery: No Cholecystectomy: No Lung Surgery: No Neurologic Surgery: No Orthopedic Surgery: Yes (BILAT ARTHROSCOPY, TWICE R KNEE) - Suicide/Smoking/Psychosocial Hx Smoking History: Former smoker Have you smoked in the past 12 months: No If you are a former smoker, when did you quit?: 1974 Hx Alcohol Use: No Drug/Substance Use Hx: No Substance Use Type: Alcohol, Marijuana Hx Substance Use Treatment: No <Mirella Grossman - Last Filed: 03/23/18 00:39> <Viktoria Prather - Last Filed: 03/23/18 00:50> - Past Medical History Allergies/Adverse Reactions: Allergies Allergy/AdvReac Type Severity Reaction Status Date / Time No Known Drug Allergies Allergy Verified 03/22/18 18:38 Home Medications: Ambulatory Orders Omeprazole 40 mg PO HS 12/03/13 Tamsulosin HCl [Flomax -] 0.4 mg PO HS 12/03/13 Famotidine [Pepcid] 40 mg PO BID #14 tablet 07/20/17 Ondansetron [Zofran Odt -] 4 mg SL Q6H PRN #30 od.tablet 07/20/17 Pantoprazole Sodium [Protonix -] 40 mg PO DAILY #30 tablet.ec 07/20/17 Atenolol [Tenormin -] 25 mg PO DAILY #30 tablet 03/22/18 Losartan Potassium 25 mg PO DAILY #30 tablet 03/22/18 Omeprazole 40 mg PO DAILY #60 tablet. 03/22/18 Review of Systems - Review of Systems Able to Perform ROS?: Yes Comments:: 03/22/18 17:48 GENERAL/CONSTITUTIONAL: (+) diaphoresis No fever or chills. No weakness. HEAD, EYES, EARS, NOSE AND THROAT: No change in vision. No ear pain or discharge. No sore throat. CARDIOVASCULAR: No chest pain or shortness of breath. RESPIRATORY: No cough, wheezing, or hemoptysis. GASTROINTESTINAL: (+) nausea, vomiting, epigastric pain. No diarrhea or constipation. GENITOURINARY: No dysuria, frequency, or change in urination. MUSCULOSKELETAL: No joint or muscle swelling or pain. No neck or back pain. SKIN: No rash NEUROLOGIC: (+) lightheadedness. No headache, loss of consciousness, or change in strength/sensation. ENDOCRINE: No increased thirst. No abnormal weight change. HEMATOLOGIC/LYMPHATIC: No anemia, easy bleeding, or history of blood clots. ALLERGIC/IMMUNOLOGIC: No hives or skin allergy. All Other Systems: Reviewed and Negative <Viktoria Prather - Last Filed: 03/23/18 00:50> *Physical Exam - Physical Exam Comments: 03/22/18 17:49 GENERAL: Awake, alert, and fully oriented, in no acute distress HEAD: No signs of trauma EYES: PERRLA, EOMI, sclera anicteric, conjunctiva clear ENT: Auricles normal inspection, hearing grossly normal, nares patent, oropharynx clear without exudates. Moist mucosa NECK: Normal ROM, supple, no lymphadenopathy, JVD, or masses LUNGS: Breath sounds equal, clear to auscultation bilaterally. No wheezes, and no crackles HEART: Regular rate and rhythm, normal S1 and S2, no murmurs, rubs or gallops ABDOMEN: Soft, nontender, normoactive bowel sounds. No guarding, no rebound. No masses EXTREMITIES: Normal range of motion, no edema. No clubbing or cyanosis. No cords, erythema, or tenderness NEUROLOGICAL: Cranial nerves II through XII grossly intact. Normal speech, normal gait SKIN: Warm, Dry, normal turgor, no rashes or lesions noted. Vascular Pulses: Femoral (R): 4+, Femoral (L): 4+, Carotid (R): 4+, Carotid (L) : 4+, Dorsalis-Pedis (R): 4+, Doralis-Pedis (L): 4+ <Viktoria Prather - Last Filed: 03/23/18 00:50> Heart Score/ECG Review #1 General ECG Interpretation: Sinus Rhythm, Normal Rate (63), Normal Intervals, No acute ischemic changes <Mirella Grossman - Last Filed: 03/23/18 00:39> ED Treatment Course - LABORATORY CBC & Chemistry Diagram: 03/22/18 18:30 03/22/18 18:30 <Mirella Grossman - Last Filed: 03/23/18 00:39> - LABORATORY CBC & Chemistry Diagram: 03/22/18 18:30 03/22/18 18:30 - RADIOLOGY Radiograph Interpretation: 03/22/18 21:[address] as reviewed by Dr. Lin reports unchanged CT from prior study on 09/09. No acute pathology. <[email or web address] - Last Filed: 03/23/18 00:50> Medical Decision Making - Medical Decision Making 03/22/18 17:33 62 yo M h/o dysrhtymia, GERD, intermittent chronic gastritis with vomiting, on compazine at home, here today with c/o epigastric pain, now associated with episodic clammines diaphoresis and today an episode of near syncope while in the IM office. denies vertigo. no f/c no leg swelling. no travel. denies chest tightness or sob. pt states brother with fatal ND< pt h/o tobacco use quit over 20 yrs ago. differential : angina, dysrhtymia, anemia, dehydration , vasovagal event, infection such as UTI, hyperthyroid. plan cbc lytes ekg trop cxr iv hydration, tsh. 03/22/18 17:36 <Mirella Grossman - Last Filed: 03/23/18 00:39> - Medical Decision Making 03/23/18 23:51 Microblog sent to [facility]. Awaiting call back 03/23/18 00:[address] Mcmillan and case discussed <Viktoria Prather - Last Filed: 03/23/18 00:50> *DC/Admit/Observation/Transfer - Discharge Dispostion Admit: Yes <Mirella Grossman - Last Filed: 03/23/18 00:39> - Attestations Scribe Attestion: 03/22/18 17:50 Documentation prepared by Viktoria Prather, acting as medical billing instructor for Mirella Grsosman MD. <Viktoria Prather - Last Filed: 03/23/18 00:50> Diagnosis at time of Disposition: Near syncope, Dysrhythmia, cardiac - Referrals Referrals: Jamie Amezquita MD [Primary Care Provider] - - Patient Instructions - Post Discharge Activity
[2018-03-22] MEDS ORDERED: SODIUM CHLORIDE 0.9% 1000 ML INFUS.BAG IV ONE (17:39)
[2018-03-22] MEDS ORDERED: ASPIRIN 81 MG CHEWABLE TABLETS PO ONE (17:39)
[2018-03-22] MEDS ORDERED: ASPIRIN 81 MG CHEWABLE TABLETS ONE (17:51)
[2018-03-22 18:42] LABS: BASO % 0.5 % (0-2.0); HEMATOCRIT 42.8 % (35.4-49); HEMOGLOBIN 14.5 GM/dL (11.7-16.9); LYMPH % 24.4 % (8-40); MCH 31.7 pg (25.7-33.7); MCHC 33.8 g/dl (32.0-35.9); MEAN CELL VOLUME 93.6 fl (80-96); MEAN PLT VOLUME 7.9 fl (7.5-11.1); MONO % 9.4 % (3.8-10.2); NEUT % 64.7 % (42.8-82.8); PLATELET COUNT 181 K/MM3 (134-434); RBC 4.57 M/mm3 (4.00-5.60); RDW 12.9 % (11.9-15.9); WHITE BLOOD COUNT 3.9 K/mm3 (4.0-10.0)
[2018-03-22 18:51] LABS: URINE APPEARANCE CLEAR; URINE BILIRUBIN NEGATIVE (<2.0 mg/dL); URINE COLOR YELLOW; URINE GLUCOSE (UA) NEGATIVE (NEGATIVE); URINE KETONE NEGATIVE (NEGATIVE); URINE LEUK ESTERASE NEGATIVE (NEGATIVE); URINE NITRITE NEGATIVE (NEGATIVE); URINE PROTEIN NEGATIVE (NEGATIVE); URINE UROBILINOGEN NEGATIVE mg/dL (0.2-1.0)
[2018-03-22 19:05] LABS: ALBUMIN 3.9 g/dl (3.4-5.0); ANION GAP 6 (8-16); BILIRUBIN,TOTAL 0.5 mg/dL (0.2-1.0); BLOOD UREA NITROGEN 18 mg/dL (7-18); CALCIUM 8.7 mg/dL (8.5-10.1); CHLORIDE 105 mmol/L (98-107); CO2 28 mmol/L (21-32); CREATININE 1.2 mg/dL (0.7-1.3); GLUCOSE,RANDOM 87 mg/dL (74-106); POTASSIUM 4.3 mmol/L (3.5-5.1); SGOT/AST 23 U/L (15-37); SGPT/ALT 32 U/L (12-78); SODIUM 139 mmol/L (136-145); TOT PROT 7.4 g/dl (6.4-8.2)
[2018-03-22 19:08] LABS: ALK PHOS 49 U/L (45-117)
[2018-03-23] MEDS ORDERED: ONDANSETRON *ODT* 4 MG TABLET SL PRN (01:20)
--- NOTE | 2018-03-23 01:56 | HP ---
CHIEF COMPLAINT: "i got dizzy" PCP: Dr Amezquita Prior PCP Dr. Calderón (retired) HISTORY OF PRESENT ILLNESS: This is a 62 yo M with of HTN, dysrhythmia, and chronic gastritis (occasional nausea, vomiting, and reflux), who presents from PCP office due to near syncopal episode. He states that for the past 3 mo he has experienced positional dizziness accompanied by palpitations and diaphoresis in addition to usual epigastric pain. He had one episode of NBNB emesis two days ago. At PCPs office today, when he got up from exam table, he became dizzy and experienced blurry vision, which resolved on its own. He has had a halter monitor years ago and a cardiac workup, at which time he was dx with "dysrythmia" but not started on any meds. He has had several benign endoscopies abd was in ED last month with similar symptoms and negative abdominal ultrasound and CT. He denies cp, sob, cough, orthopnea, le edema, diarrhea, constipation, dysuria, hematochezia, melena, starting new meds, sick contacts. ER course was notable for: (1)labs (2)ekg unremarkable no change. CXR unremarkable (3)Asa, NS 1L Recent Travel: denies PAST MEDICAL HISTORY: as above PAST SURGICAL HISTORY: b/l knee carlotta, L arm surg, periumbilical hernia x2 Social History: lives with Smoking: Former smoker (quit in the 70s) Alcohol: once a week 6 drinks Drugs: denies Family History: father HTN, HLD. Brother AL 60's Allergies No Known Drug Allergies Allergy (Verified 03/22/18 18:38) HOME MEDICATIONS: Home Medications Medication Instructions Recorded Omeprazole 40 mg PO HS 12/03/13 Tamsulosin HCl [Flomax -] 0.4 mg PO HS 12/03/13 Famotidine [Pepcid] 40 mg PO BID #14 tablet 07/20/17 Ondansetron [Zofran Odt -] 4 mg SL Q6H PRN #30 od.tablet 07/20/17 Pantoprazole Sodium [Protonix -] 40 mg PO DAILY #30 tablet.ec 07/20/17 Atenolol [Tenormin -] 25 mg PO DAILY #30 tablet 03/22/18 Losartan Potassium 25 mg PO DAILY #30 tablet 03/22/18 Omeprazole 40 mg PO DAILY #60 tablet. 03/22/18 REVIEW OF SYSTEMS CONSTITUTIONAL: Absent: fever, chills, loss of appetite, weight change HEENT: Absent: rhinorrhea, nasal congestion, throat pain CARDIOVASCULAR: Absent: chest pain, syncope, peripheral edema RESPIRATORY: Absent: cough, shortness of breath, dyspnea with exertion, orthopnea, wheezing, stridor, hemoptysis GASTROINTESTINAL: Absent: diarrhea, constipation, melena, hematochezia GENITOURINARY: Absent: dysuria MUSCULOSKELETAL: Absent: back pain, neck pain SKIN: Absent: rash, itching, pallor HEMATOLOGIC/IMMUNOLOGIC: Absent: easy bleeding, easy bruising ENDOCRINE: Absent: unexplained weight gain, unexplained weight loss, heat intolerance, cold intolerance NEUROLOGIC: Absent: headache, focal weakness or paresthesias PSYCHIATRIC: Absent: anxiety, depression PHYSICAL EXAMINATION Vital Signs - 24 hr 03/22/18 03/23/18 18:29 01:04 Temperature 97.8 F 98.6 F Pulse Rate 68 Pulse Rate [ 85 Apical] Respiratory 14 17 Rate Blood Pressure 138/98 Blood Pressure 130/91 [Right Arm] O2 Sat by Pulse 97 97 Oximetry (%) GENERAL: Awake, alert, and fully oriented, in no acute distress. HEAD: Normal with no signs of trauma. EYES: Pupils equal, round and reactive to light, extraocular movements intact, sclera anicteric, conjunctiva clear. No lid lag. EARS, NOSE, THROAT: Moist mucous membranes. NECK: supple without JVD LUNGS: Breath sounds equal, clear to auscultation bilaterally HEART: Regular rate and rhythm, normal S1 and S2 ABDOMEN: Soft, mildly tender epigastric region, mildly distended, normoactive bowel sounds, no guarding, no rebound, no masses. MUSCULOSKELETAL: Normal range of motion at all joints. No bony deformities or tenderness. No CVA tenderness. UPPER EXTREMITIES: 2+ pulses, warm, well-perfused. No cyanosis. No clubbing. No peripheral edema. LOWER EXTREMITIES: 2+ pulses, warm, well-perfused. No calf tenderness. No peripheral edema. NEUROLOGICAL: Cranial nerves II-XII grossly intact. Normal speech. PSYCHIATRIC: Cooperative. Good eye contact. Appropriate mood and affect. SKIN: Warm, dry Laboratory Results - last 24 hr 03/22/18 03/22/18 03/22/18 18:30 18:30 18:30 WBC 3.9 L RBC 4.57 Hgb 14.5 Hct 42.8 MCV 93.6 MCH 31.7 MCHC 33.8 RDW 12.9 Plt Count 181 MPV 7.9 Neutrophils % 64.7 Lymphocytes % 24.4 Monocytes % 9.4 Eosinophils % 1.0 Basophils % 0.5 Sodium 139 Potassium 4.3 Chloride 105 Carbon Dioxide 28 Anion Gap 6 L BUN 18 D Creatinine 1.2 Creat Clearance w eGFR > 60 Random Glucose 87 Calcium 8.7 Total Bilirubin 0.5 AST 23 ALT 32 Alkaline Phosphatase 49 Creatine Kinase 115 Troponin I < 0.02 Total Protein 7.4 Albumin 3.9 TSH Urine Color Yellow Urine Appearance Clear Urine pH 5.0 Ur Specific [place] 1.025 Urine Protein Negative Urine Glucose (UA) Negative Urine Ketones Negative Urine Blood Negative Urine Nitrite Negative Urine Bilirubin Negative Urine Urobilinogen Negative Ur Leukocyte Esterase Negative 03/22/18 03/22/18 03/23/18 18:30 23:39 01:00 WBC RBC Hgb Hct MCV MCH MCHC RDW Plt Count MPV Neutrophils % Lymphocytes % Monocytes % Eosinophils % Basophils % Sodium Potassium Chloride Carbon Dioxide Anion Gap BUN Creatinine Creat Clearance w eGFR Random Glucose Calcium Total Bilirubin AST ALT Alkaline Phosphatase Creatine Kinase Cancelled 100 Troponin I Cancelled < 0.02 Total Protein Albumin TSH 0.80 Urine Color Urine Appearance Urine pH Ur Specific [place] Urine Protein Urine Glucose (UA) Urine Ketones Urine Blood Urine Nitrite Urine Bilirubin Urine Urobilinogen Ur Leukocyte Esterase ASSESSMENT/PLAN: This is a 62 yo M with of HTN, dysrhythmia, and chronic gastritis (occasional nausea, vomiting, and reflux), who presents from PCP office due to near syncopal episode. Near syncope -likely orthostatic or vasovagal -f/u orthostatic vitals, altough already received 1 L IVF -r/o cardiac causes; ekg unremarkable, no change from past, cxr wnl, trop - x 2 , tsh wnl -f/u tele, tte, cardio consult HTN -resume atenolol, losartan BPH -resume flomax GERD -resume ppi FEN -PO hydration -f/u lytes -na restricted diet Dispo obs m/s Problem List - Problem (1) HTN (hypertension) Code(s): I10 - ESSENTIAL (PRIMARY) HYPERTENSION (2) Dysrhythmia, cardiac Code(s): I49.9 - CARDIAC ARRHYTHMIA, UNSPECIFIED (3) Near syncope Code(s): R55 - SYNCOPE AND COLLAPSE (4) Abdominal pain Code(s): R10.9 - UNSPECIFIED ABDOMINAL PAIN (5) GERD (gastroesophageal reflux disease) Code(s): K21.9 - GASTRO-ESOPHAGEAL REFLUX DISEASE WITHOUT ESOPHAGITIS Qualifiers: Esophagitis presence: without esophagitis Qualified Code(s): K21.9 - Gastro -esophageal reflux disease without esophagitis Visit type - Emergency Visit Emergency Visit: Yes Care time: The patient presented to the Emergency Department on the above date and was hospitalized for further evaluation of their emergent condition. - New Patient This patient is new to me today: Yes Date on this admission: 03/23/18 - Critical Care Critical Care patient: No Hospitalist Screening - Colonoscopy Questionnaire Colonoscopy Questionnaire: Colonoscopy Questionnaire - Patient: 50 - 75 years old and never had a screening colonoscopy: Yes History of colon or rectal polyps, or CA: No History of IBD, Crohn's disease or UC: No History of abdominal radiation therapy as a child: No - Relative: 1 with colon or rectal CA, or polyps at age 60 or younger: No Colon or rectal CA diagnosed at age 45 or younger: No Multiple relatives with colon or rectal CA: No - Outcome: Screening Result: Positive Screen
[2018-03-23 01:59] LABS: MAGNESIUM 1.8 mg/dL (1.8-2.4); PHOSPHOROUS 2.6 mg/dL (2.5-4.9)
--- NOTE | 2018-03-23 02:55 | PN ---
Teaching Attending Note Name of Resident: Homa Go ATTENDING PHYSICIAN STATEMENT I saw and evaluated the patient. Chart, data, imaging reviewed. I reviewed the resident's note and discussed the case with the resident. I agree with the resident's findings and plan as documented. SUBJECTIVE: 62 yo man with of HTN, unknown dysrhythmia, and chronic gastritis (occasional nausea, vomiting, and reflux), who had presyncope episode at pcp office on 03/22 when he was rising from sitting position. Patient did not actually lose consciousness. There was no chest pain. Urged by pcp to come to ER for evaluation. OBJECTIVE: Last Vital Signs Temp Pulse Resp BP Pulse Ox 98.6 F 85 17 130/91 97 03/23/18 01:04 03/23/18 01:04 03/23/18 01:04 03/23/18 01:04 03/23/18 01:04 general- nad, aaox3 heent - moist oral mucosa cv - s1+s2+rrr chest - cta b/l abdomen -soft, nt, no masses appreciated ext- no pedal edema skin- no rashes appreciated Abnormal Lab Results 03/22/18 03/22/18 18:30 18:30 WBC 3.9 L Anion Gap 6 L EKG -reviewed by me, nsr ASSESSMENT AND PLAN: #Presyncope episosde- likely orthostatic hypotension. Troponins negative. Ekg shows NSR. -tele-observation -check orthostatics -avoid diuretics -advised to rise slowly from seated position -advised adequate fluid intake -continue home medications -heparin sc for dvt ppx
[2018-03-23 04:44] VITALS: BMI 26.3
[2018-03-23 08:04] LABS: ANION GAP 4 (8-16); BLOOD UREA NITROGEN 17 mg/dL (7-18); CHLORIDE 107 mmol/L (98-107); CO2 28 mmol/L (21-32); CREATININE 1.2 mg/dL (0.7-1.3); GLUCOSE,RANDOM 115 mg/dL (74-106); MAGNESIUM 2.1 mg/dL (1.8-2.4); PHOSPHOROUS 3.4 mg/dL (2.5-4.9); POTASSIUM 3.7 mmol/L (3.5-5.1); SODIUM 139 mmol/L (136-145)
--- NOTE | 2018-03-23 08:56 | PN ---
Physical Exam: SUBJECTIVE: Patient seen and examined OBJECTIVE: Vital Signs Temperature 97.9 F 03/23/18 03:55 Pulse Rate 83 03/23/18 03:55 Respiratory Rate 20 03/23/18 03:55 Blood Pressure 148/88 03/23/18 03:55 O2 Sat by Pulse Oximetry (%) 97 03/23/18 01:04 GENERAL: The patient is awake, alert, and fully oriented, in no acute distress. HEAD: Normal with no signs of trauma. EYES: PERRL, extraocular movements intact, sclera anicteric, conjunctiva clear. No ptosis. ENT: Ears normal, nares patent, oropharynx clear without exudates, moist mucous membranes. NECK: Trachea midline, full range of motion, supple. LUNGS: Breath sounds equal, clear to auscultation bilaterally, no wheezes, no crackles, no accessory muscle use. HEART: Regular rate and rhythm, S1, S2 without murmur, rub or gallop. ABDOMEN: Soft, nontender, nondistended, normoactive bowel sounds, no guarding, no rebound, no hepatosplenomegaly, no masses. EXTREMITIES: 2+ pulses, warm, well-perfused, no edema. NEUROLOGICAL: Cranial nerves II through XII grossly intact. Normal speech, gait not observed. PSYCH: Normal mood, normal affect. SKIN: Warm, dry, normal turgor, no rashes or lesions noted CBCD WBC 3.9 K/mm3 (4.0-10.0) L 03/22/18 18:30 RBC 4.57 M/mm3 (4.00-5.60) 03/22/18 18:30 Hgb 14.5 GM/dL (11.7-16.9) 03/22/18 18:30 Hct 42.8 % (35.4-49) 03/22/18 18:30 MCV 93.6 fl (80-96) 03/22/18 18:30 MCHC 33.8 g/dl (32.0-35.9) 03/22/18 18:30 RDW 12.9 % (11.9-15.9) 03/22/18 18:30 Plt Count 181 K/MM3 (134-434) 03/22/18 18:30 MPV 7.9 fl (7.5-11.1) 03/22/18 18:30 CMP Sodium 139 mmol/L (136-145) 03/23/18 05:00 Potassium 3.7 mmol/L (3.5-5.1) 03/23/18 05:00 Chloride 107 mmol/L (98-107) 03/23/18 05:00 Carbon Dioxide 28 mmol/L (21-32) 03/23/18 05:00 Anion Gap 4 (8-16) L 03/23/18 05:00 BUN 17 mg/dL (7-18) 03/23/18 05:00 Creatinine 1.2 mg/dL (0.7-1.3) 03/23/18 05:00 Creat Clearance w eGFR > 60 (>60) 03/22/18 18:30 Random Glucose 115 mg/dL (74-106) H D 03/23/18 05:00 Calcium 8.0 mg/dL (8.5-10.1) L 03/23/18 05:00 Total Bilirubin 0.5 mg/dL (0.2-1.0) 03/22/18 18:30 AST 23 U/L (15-37) 03/22/18 18:30 ALT 32 U/L (12-78) 03/22/18 18:30 Alkaline Phosphatase 49 U/L (45-117) 03/22/18 18:30 Total Protein 7.4 g/dl (6.4-8.2) 03/22/18 18:30 Albumin 3.9 g/dl (3.4-5.0) 03/22/18 18:30 CARDIAC ENZYMES Creatine Kinase 100 IU/L (39-308) 03/23/18 01:00 Troponin I < 0.02 ng/ml (0.00-0.05) 03/23/18 01:00 Active Medications Generic Name Dose Route Start Last Admin Trade Name Freq PRN Reason Stop Dose Admin Atenolol 25 mg 03/23/18 10:00 Tenormin - PO DAILY [facility] Losartan Potassium 25 mg 03/23/18 10:00 Cozaar - PO DAILY [facility] Ondansetron HCl 4 mg 03/23/18 01:20 Zofran Odt - SL Q6H PRN NAUSEA Pantoprazole Sodium 40 mg 03/23/18 10:00 Protonix - PO DAILY [facility] Tamsulosin HCl 0.4 mg 03/23/18 22:00 Flomax - PO [facility] Home Medications Medication Instructions Recorded Omeprazole 40 mg PO HS 12/03/13 Tamsulosin HCl [Flomax -] 0.4 mg PO HS 12/03/13 Famotidine [Pepcid] 40 mg PO BID #14 tablet 07/20/17 Ondansetron [Zofran Odt -] 4 mg SL Q6H PRN #30 od.tablet 07/20/17 Pantoprazole Sodium [Protonix -] 40 mg PO DAILY #30 tablet.ec 07/20/17 Atenolol [Tenormin -] 25 mg PO DAILY #30 tablet 03/22/18 Losartan Potassium 25 mg PO DAILY #30 tablet 03/22/18 Omeprazole 40 mg PO DAILY #60 tablet. 03/22/18 ASSESSMENT/PLAN: This is a 62 yo M with of HTN, dysrhythmia, and chronic gastritis (occasional nausea, vomiting, and reflux), who presents from PCP office due to near syncopal episode. Near syncope -likely orthostatic or vasovagal -f/u orthostatic vitals, altough already received 1 L IVF -r/o cardiac causes; ekg unremarkable, no change from past, cxr wnl, trop - x 2 , tsh wnl -f/u tele, tte, cardio consult HTN -resume atenolol, losartan BPH -resume flomax GERD -resume ppi FEN -PO hydration -f/u lytes -na restricted diet Dispo obs m/s
[2018-03-23] MEDS ORDERED: ATENOLOL 25 MG TABLET (FP) PO SCH (10:00)
[2018-03-23] MEDS ORDERED: PANTOPRAZOLE 40 MG TABLET (FP) PO SCH (10:00)
[2018-03-23] MEDS ORDERED: LOSARTAN POTASSIUM 25 MG TABLET PO SCH (10:00)
--- NOTE | 2018-03-23 10:28 | CON.CARD ---
Consult Consult Specialty:: Cardiology Referred by:: Hospitalist Reason for Consultation:: Cardiac evaluation - History of Present Illness Chief Complaint: Near syncope History of Present Illness: Patient is a 62 year old male with underlying history of possible cardiac arrhythmia (told by Dr. Kip Calderón who used to take care of him), GERD, hypertension and difficulty with sleep patterns who presents with positional dizziness and near syncope. He denies LOC. He nir to see PMD and before going home, he experienced dizziness and blurring of vision which resolved, but was brought into the hospital for further evaluation. Medical record indicates palpitations, but currently he denies this symptoms and denies chest pain or shortness of breath, He denies fever but complains of occasional chills. He denies nausea, vomiting, diarrhea or abdominal pain, He denies headache or cough. He states that he has not slept well for days. - History Source History Provided By: Patient, Medical Record Limitations to Obtaining History: No Limitations - Past Medical History Cardio/Vascular: Yes: HTN Gastrointestinal: Yes: GERD - Past Surgical History Past Surgical History: Yes: Hernia Repair (ventral hernia repair) Additional Surgical History: Knee surgery, forearm surgery for tendon repari, surgery to right thigh - Alcohol/Substance Use Hx Alcohol Use: Yes (social) History of Substance Use: reports: None - Smoking History Smoking history: Never smoked Have you smoked in the past 12 months: No If you are a former smoker, when did you quit?: 1975 Home Medications - Allergies Allergies/Adverse Reactions: Allergies Allergy/AdvReac Type Severity Reaction Status Date / Time No Known Drug Allergies Allergy Verified 03/22/18 18:38 - Home Medications Home Medications: Ambulatory Orders Omeprazole 40 mg PO HS 12/03/13 Tamsulosin HCl [Flomax -] 0.4 mg PO HS 12/03/13 Famotidine [Pepcid] 40 mg PO BID #14 tablet 07/20/17 Ondansetron [Zofran Odt -] 4 mg SL Q6H PRN #30 od.tablet 07/20/17 Pantoprazole Sodium [Protonix -] 40 mg PO DAILY #30 tablet.ec 07/20/17 Atenolol [Tenormin -] 25 mg PO DAILY #30 tablet 03/22/18 Losartan Potassium 25 mg PO DAILY #30 tablet 03/22/18 Omeprazole 40 mg PO DAILY #60 tablet. 03/22/18 Family Disease History - Family Disease History Other Family History: History of HTN Review of Systems - Review of Systems Constitutional: reports: Chills. denies: Fever Cardiovascular: denies: Chest Pain, Palpitations, Shortness of Breath Respiratory: denies: Cough, Hemoptysis, Orthopnea, SOB, SOB on Exertion Gastrointestinal: denies: Abdominal Pain, Constipation, Diarrhea, Melena, Nausea , Rectal Bleeding, Vomiting Genitourinary: denies: Dysuria, Hematuria Neurological: reports: Dizziness, Weakness. denies: Change in Speech, Headache , Numbness, Parasthesia, Seizure, Syncope, Unsteady Gait Vital Signs: Vital Signs Temperature 97.9 F 03/23/18 03:55 Pulse Rate 83 03/23/18 03:55 Respiratory Rate 20 03/23/18 03:55 Blood Pressure 148/88 03/23/18 03:55 O2 Sat by Pulse Oximetry (%) 97 03/23/18 01:04 Constitutional: Yes: Well Nourished Eyes: Yes: PERRL HENT: Yes: Atraumatic Neck: Yes: Supple Respiratory: Yes: CTA Bilaterally Gastrointestinal: Yes: Normal Bowel Sounds, Soft. No: Tenderness Cardiovascular: Yes: Regular Rate and Rhythm JVD: No Carotid Bruit: No PMI: Non-Displaced Heart Sounds: Yes: S1, S2. No: Gallop Murmur: No: Systolic Murmur, Diastolic Murmur Edema: No Neurological: Yes: WNL - Other Data Labs, Other Data: CBC, BMP 03/22/18 18:30 03/23/18 05:00 Troponin, BNP 03/22/18 03/22/18 03/23/18 18:30 23:39 01:00 Troponin I < 0.02 Cancelled < 0.02 Laboratory Results - last 24 hr 03/22/18 03/22/18 03/22/18 18:30 18:30 18:30 WBC 3.9 L RBC 4.57 Hgb 14.5 Hct 42.8 MCV 93.6 MCH 31.7 MCHC 33.8 RDW 12.9 Plt Count 181 MPV 7.9 Neutrophils % 64.7 Lymphocytes % 24.4 Monocytes % 9.4 Eosinophils % 1.0 Basophils % 0.5 Sodium 139 Potassium 4.3 Chloride 105 Carbon Dioxide 28 Anion Gap 6 L BUN 18 D Creatinine 1.2 Creat Clearance w eGFR > 60 Random Glucose 87 Calcium 8.7 Phosphorus Magnesium Total Bilirubin 0.5 AST 23 ALT 32 Alkaline Phosphatase 49 Creatine Kinase 115 Troponin I < 0.02 Total Protein 7.4 Albumin 3.9 TSH Urine Color Yellow Urine Appearance Clear Urine pH 5.0 Ur Specific [place] 1.025 Urine Protein Negative Urine Glucose (UA) Negative Urine Ketones Negative Urine Blood Negative Urine Nitrite Negative Urine Bilirubin Negative Urine Urobilinogen Negative Ur Leukocyte Esterase Negative 03/22/18 03/22/18 03/23/18 18:30 23:39 01:00 WBC RBC Hgb Hct MCV MCH MCHC RDW Plt Count MPV Neutrophils % Lymphocytes % Monocytes % Eosinophils % Basophils % Sodium Potassium Chloride Carbon Dioxide Anion Gap BUN Creatinine Creat Clearance w eGFR Random Glucose Calcium Phosphorus Magnesium Total Bilirubin AST ALT Alkaline Phosphatase Creatine Kinase Cancelled 100 Troponin I Cancelled < 0.02 Total Protein Albumin TSH 0.80 Urine Color Urine Appearance Urine pH Ur Specific [place] Urine Protein Urine Glucose (UA) Urine Ketones Urine Blood Urine Nitrite Urine Bilirubin Urine Urobilinogen Ur Leukocyte Esterase 03/23/18 03/23/18 01:38 05:00 WBC RBC Hgb Hct MCV MCH MCHC RDW Plt Count MPV Neutrophils % Lymphocytes % Monocytes % Eosinophils % Basophils % Sodium 139 Potassium 3.7 Chloride 107 Carbon Dioxide 28 Anion Gap 4 L BUN 17 Creatinine 1.2 Creat Clearance w eGFR Random Glucose 115 H D Calcium 8.0 L Phosphorus 2.6 3.4 D Magnesium 1.8 2.1 Total Bilirubin AST ALT Alkaline Phosphatase Creatine Kinase Troponin I Total Protein Albumin TSH Urine Color Urine Appearance Urine pH Ur Specific [place] Urine Protein Urine Glucose (UA) Urine Ketones Urine Blood Urine Nitrite Urine Bilirubin Urine Urobilinogen Ur Leukocyte Esterase Sinus rhythm with nonspecific T abnormality Imaging - Results Chest X-ray: Report Reviewed (Unremarkable) Cat Scan: Report Reviewed (Head CT noted) EKG: Report Reviewed Problem List - Problems (1) HTN (hypertension) Code(s): I10 - ESSENTIAL (PRIMARY) HYPERTENSION (2) Near syncope Code(s): R55 - SYNCOPE AND COLLAPSE (3) GERD (gastroesophageal reflux disease) Code(s): K21.9 - GASTRO-ESOPHAGEAL REFLUX DISEASE WITHOUT ESOPHAGITIS Qualifiers: Esophagitis presence: without esophagitis Qualified Code(s): K21.9 - Gastro -esophageal reflux disease without esophagitis Assessment/Plan 1. Near syncope, etiology unclear, neurocardiogenic, vasovagal vs. autonomic 2. Hypertension 3. GERD 4. Abnormal sleep pattern PLAN: 1. 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 He may have extended monitoring as outpatient with event loop recording 3. Transthoracic echocardiography if remains hospitalized otherwise can be done as outpatient 4. Continue Atenolol and Losartan as tolerated Further plans are to follow Frank Garay MD
--- NOTE | 2018-03-23 11:27 | DS ---
Physical Exam: SUBJECTIVE: Patient seen and examined Patient is comfortable, feels tires that was not able to sleep at night, no nausea or vomiting, no shortness of breath, no chest pain. OBJECTIVE: Vital Signs Temperature 97.9 F 03/23/18 03:55 Pulse Rate 83 03/23/18 03:55 Respiratory Rate 20 03/23/18 03:55 Blood Pressure 148/88 03/23/18 03:55 O2 Sat by Pulse Oximetry (%) 100 03/23/18 09:17 PHYSICAL EXAM GENERAL: The patient is awake, alert, and fully oriented, in no acute distress. HEAD: Normal with no signs of trauma. EYES: PERRL, extraocular movements intact, sclera anicteric, conjunctiva clear. ENT: Ears normal, nares patent, oropharynx clear without exudates, moist mucous membranes. NECK: Trachea midline, full range of motion, supple. LUNGS: Breath sounds equal, clear to auscultation bilaterally, no wheezes, no crackles, no accessory muscle use. HEART: Regular rate and rhythm, S1, S2 positive, no murrmur appreciated, rub or gallop. ABDOMEN: Soft, nontender, nondistended, normoactive bowel sounds, no guarding, no rebound, no hepatosplenomegaly, no masses appreciated. EXTREMITIES: 2+ pulses, warm, well-perfused, no edema. NEUROLOGICAL: Cranial nerves II through XII grossly intact. Normal speech, gait not observed. PSYCH: Normal mood, normal affect. SKIN: Warm, dry, normal turgor, no rashes or lesions noted. LABS CBCD WBC 3.9 K/mm3 (4.0-10.0) L 03/22/18 18:30 RBC 4.57 M/mm3 (4.00-5.60) 03/22/18 18:30 Hgb 14.5 GM/dL (11.7-16.9) 03/22/18 18:30 Hct 42.8 % (35.4-49) 03/22/18 18:30 MCV 93.6 fl (80-96) 03/22/18 18:30 MCHC 33.8 g/dl (32.0-35.9) 03/22/18 18:30 RDW 12.9 % (11.9-15.9) 03/22/18 18:30 Plt Count 181 K/MM3 (134-434) 03/22/18 18:30 MPV 7.9 fl (7.5-11.1) 03/22/18 18:30 CMP Sodium 139 mmol/L (136-145) 03/23/18 05:00 Potassium 3.7 mmol/L (3.5-5.1) 03/23/18 05:00 Chloride 107 mmol/L (98-107) 03/23/18 05:00 Carbon Dioxide 28 mmol/L (21-32) 03/23/18 05:00 Anion Gap 4 (8-16) L 03/23/18 05:00 BUN 17 mg/dL (7-18) 03/23/18 05:00 Creatinine 1.2 mg/dL (0.7-1.3) 03/23/18 05:00 Creat Clearance w eGFR > 60 (>60) 03/22/18 18:30 Random Glucose 115 mg/dL (74-106) H D 03/23/18 05:00 Calcium 8.0 mg/dL (8.5-10.1) L 03/23/18 05:00 Total Bilirubin 0.5 mg/dL (0.2-1.0) 03/22/18 18:30 AST 23 U/L (15-37) 03/22/18 18:30 ALT 32 U/L (12-78) 03/22/18 18:30 Alkaline Phosphatase 49 U/L (45-117) 03/22/18 18:30 Total Protein 7.4 g/dl (6.4-8.2) 03/22/18 18:30 Albumin 3.9 g/dl (3.4-5.0) 03/22/18 18:30 CARDIAC ENZYMES Creatine Kinase 100 IU/L (39-308) 03/23/18 01:00 Troponin I < 0.02 ng/ml (0.00-0.05) 03/23/18 01:00 Current Medications Generic Name Dose Route Start Last Admin Trade Name Freq PRN Reason Stop Dose Admin Atenolol 25 mg 03/23/18 10:00 03/23/18 09:21 Tenormin - PO 25 mg DAILY LINDY Administration Losartan Potassium 25 mg 03/23/18 10:00 03/23/18 09:21 Cozaar - PO 25 mg DAILY LINDY Administration Ondansetron HCl 4 mg 03/23/18 01:20 Zofran Odt - SL Q6H PRN NAUSEA Pantoprazole Sodium 40 mg 03/23/18 10:00 03/23/18 09:21 Protonix - PO 40 mg DAILY LINDY Administration Tamsulosin HCl 0.4 mg 03/23/18 22:00 Flomax - PO HS [facility] [place] Home Medications Medication Instructions Recorded Omeprazole 40 mg PO HS 12/03/13 Tamsulosin HCl [Flomax -] 0.4 mg PO HS 12/03/13 Famotidine [Pepcid] 40 mg PO BID #14 tablet 07/20/17 Ondansetron [Zofran Odt -] 4 mg SL Q6H PRN #30 od.tablet 07/20/17 Pantoprazole Sodium [Protonix -] 40 mg PO DAILY #30 tablet.ec 07/20/17 Atenolol [Tenormin -] 25 mg PO DAILY #30 tablet 03/22/18 Losartan Potassium 25 mg PO DAILY #30 tablet 03/22/18 Omeprazole 40 mg PO DAILY #60 tablet. 03/22/18 HOSPITAL COURSE: Date of Admission:03/23/18 Date of Discharge: 03/23/18 This is a 62 yo M with of HTN, BPH, hronic gastritis (occasional nausea, vomiting, and reflux), who presents from PCP's office due to having a near syncopal episode. # Near syncope most likely Vasovagal , etiology is unclear, neurocardiogenic, vs. autonomic, patient denies having any cardiac hx besides HTN, no similar episodes prior to this admission Able to ambulate without any difficulty. Will follow with for echo as an outpatient and an event monitor within a week period. Serial cardiac enzymes are negative, tele.monitoring unrevealing, therofore needs an extended monitoring with an event loop monitor #HTN continue atenolol, losartan #BPH continue flomax #GERD continue ppi Discharge time 35minutes Minutes to complete discharge: 35 Discharge Summary Reason For Visit: PRE SYNCOPE, CARDIAC ARRHYTHMIA Current Active Problems Dysrhythmia, cardiac (Acute) HTN (hypertension) (Acute) Near syncope (Acute) - Instructions Referrals: Jamie Amezquita MD [Primary Care Provider] - - Home Medications Comprehensive Discharge Medication List: Ambulatory Orders Omeprazole 40 mg PO HS 12/03/13 Tamsulosin HCl [Flomax -] 0.4 mg PO HS 12/03/13 Famotidine [Pepcid] 40 mg PO BID #14 tablet 07/20/17 Ondansetron [Zofran Odt -] 4 mg SL Q6H PRN #30 od.tablet 07/20/17 Pantoprazole Sodium [Protonix -] 40 mg PO DAILY #30 tablet.ec 07/20/17 Atenolol [Tenormin -] 25 mg PO DAILY #30 tablet 03/22/18 Losartan Potassium 25 mg PO DAILY #30 tablet 03/22/18 Omeprazole 40 mg PO DAILY #60 tablet. 03/22/18 This patient is new to me today: Yes Date on this admission: 03/23/18 Emergency Visit: Yes ED Registration Date: 03/23/18 Care time: The patient presented to the Emergency Department on the above date and was hospitalized for further evaluation of their emergent condition. Critical Care patient: No - Discharge Referral Referred to [facility] No
[2018-03-23 12:23] VITALS: BP 130/97; PULSE 88; TEMP 98
--- NOTE | 2018-03-23 14:35 | EKG ---
Test Reason : Blood Pressure : / mmHG Vent. Rate : 063 BPM Atrial Rate : 063 BPM P-R Int : 140 ms QRS Dur : 084 ms QT Int : 432 ms P-R-T Axes : 055 -22 -03 degrees QTc Int : 442 ms NORMAL SINUS RHYTHM VOLTAGE CRITERIA FOR LEFT VENTRICULAR HYPERTROPHY NONSPECIFIC T WAVE ABNORMALITY ABNORMAL ECG WHEN COMPARED WITH ECG OF 24-FEB-2018 22:23, NO SIGNIFICANT CHANGE WAS FOUND Confirmed by MD Joel, Devin ([id number]) on 03/23/2018 2:34:56 PM Referred By: Confirmed By:Devin Maldonado MD
[2018-03-23] MEDS ORDERED: TAMSULOSIN HCL 0.4 MG CAP.ER.24H (FP) PO SCH (22:00)
== END 2018-03-23 14:50 | disposition home or self-care (01) ==
LOC: JER 16:15 → JERBED 03-23 00:41 → UNDOADMOB 03-23 00:51 → J4W 03-23 03:59
PROVIDERS: ADMIT Internal Medicine; ATTEND Internal Medicine
PROC: 3E0337Z Introduction of Electrolytic and Water Balance Substance into Peripheral Vein, Percutaneous Approach (ICD-10-PCS; principal; 2018-03-23)
DX: I49.9 Cardiac arrhythmia, unspecified (principal); R55 Syncope and collapse; I10 Essential (primary) hypertension; E78.5 Hyperlipidemia, unspecified; K29.50 Unspecified chronic gastritis without bleeding; N40.0 Benign prostatic hyperplasia without lower urinary tract symptoms; Z87.891 Personal history of nicotine dependence; K21.9 Gastro-esophageal reflux disease without esophagitis
CPT/HCPCS: 36415; 70450-TC; 71046-TC-FY; 80048; 80053; 81003; 82550; 83735; 84100; 84443; 84484; 85025; 93005; 93010; 99283-25; G0378; J7030

== ENCOUNTER 2018-11-15 14:45 | Emergency (ER) | payer OTHER, BC ==
--- NOTE | 2018-11-15 14:51 | PDOC ---
Rapid Medical Evaluation Chief Complaint: Respiratory Time Seen by Provider: 11/15/18 14:49 Medical Evaluation: Allergies Allergy/AdvReac Type Severity Reaction Status Date / Time No Known Drug Allergies Allergy Verified 03/22/18 18:38 11/15/18 14:49 I have performed a brief in-person evaluation of this patient. The patient presents with a chief complaint of:cough short of breath for one month, on prednisone, cough syrup Pertinent physical exam findings:coarse bilateral lung sounds , productive cough white phlegm I have ordered the following: CXR The patient will proceed to the ED for further evaluation. Discharge Disposition - Diagnosis Post-nasal drainage - Discharge Dispostion Disposition: HOME Condition at time of disposition: Good - Prescriptions Prescriptions: Fluticasone Prop 0.05% Nasal [Flonase -] 1 - 2 spray NS BID #1 spray.pump - Referrals - Patient Instructions Printed Discharge Instructions: DI for Sinusitis Additional Instructions: Please continue with augmentin but try using your nasal lavage along with newly prescribed flonase. Follow up with ENT if s/s continue - Post Discharge Activity
[2018-11-15 14:55] VITALS: BP 138/78; PULSE 94; TEMP 97.9; BMI 26.4
[2018-11-15] MEDS ORDERED: ALBUTEROL SO4 2.5/IPRATROPIUM 0.5 INH SOL 3 ML VIAL.NEB. NEB ONE ×4 (14:55→15:37)
--- NOTE | 2018-11-15 15:29 | PDOC ---
History of Present Illness - General Chief Complaint: Respiratory Stated Complaint: SOB Time Seen by Provider: 11/15/18 14:49 History Source: Patient Exam Limitations: No Limitations - History of Present Illness Initial Comments: 11/15/18 15:28 63-year-old male with complaints of dry hacking cough worse at night with intermittent white phlegm , shortness of breath Intermittently x 1 month. Patient states was placed on prednisone and augmentin along with cough medicine by his primary care physician on Sunday. Patient also has been using an inhaler which he had with his last episodes of acute wheezy bronchitis which she states had earlier this year around August. Patient denies smoking history , recent travel, fever, chills, chest pain, lower extremity edema, palpitations , night sweats, recent travel or recent surgery. Timing/Duration: reports: other (1 month with various uri s/s) Severity: reports: moderate Possible Cause: Yes: occasional episodes Modifying Factors: improves with: coughing Associated Symptoms: reports: cough, nasal congestion, shortness of breath Past History - Travel Traveled outside of the country in the last 30 days: No - Past Medical History Allergies/Adverse Reactions: Allergies Allergy/AdvReac Type Severity Reaction Status Date / Time No Known Drug Allergies Allergy Verified 11/15/18 14:53 Home Medications: Ambulatory Orders Atenolol [Tenormin -] 25 mg PO DAILY #30 tablet 03/22/18 Losartan Potassium 25 mg PO DAILY #30 tablet 03/22/18 Albuterol Sulfate [Proair Hfa] 2 inh IH PRN PRN 11/15/18 Amoxicillin/Potassium Clav [Augmentin 875-125 Tablet] 1 each PO BID 11/15/18 Fluticasone Prop 0.05% Nasal [Flonase -] 1 - 2 spray NS BID #1 spray.pump Prednisone 10 mg PO ASDIR 11/15/18 Promethazine/Dextromethorphan [Promethazine-Dm Syrup] 10 ml PO PRN PRN 11/15/18 Anemia: No Asthma: No Cancer: No Cardiac Disorders: Yes (IRREGULAR HEART BEAT) CVA: No COPD: No CHF: No Dementia: No Diabetes: No GI Disorders: Yes (REFLUX,GASTRITIS,GERD) Disorders: Yes (ENLARGED PROSTATE) HTN: Yes Hypercholesterolemia: Yes Liver Disease: No Seizures: No Thyroid Disease: No - Surgical History Abdominal Surgery: Yes (VENTRAL HERNIA REPAIR) Appendectomy: No Cardiac Surgery: No Cholecystectomy: No Lung Surgery: No Neurologic Surgery: No Orthopedic Surgery: Yes (BILAT ARTHROSCOPY, TWICE R KNEE) - Suicide/Smoking/Psychosocial Hx Smoking History: Former smoker Have you smoked in the past 12 months: No If you are a former smoker, when did you quit?: 1075 Information on smoking cessation initiated: No Hx Alcohol Use: Yes (social) Drug/Substance Use Hx: No Substance Use Type: Alcohol, Marijuana Hx Substance Use Treatment: No Patient Lives Alone: No Lives with/in: spouse/SO Review of Systems - Review of Systems Able to Perform ROS?: Yes Constitutional: No: Symptoms Reported HEENTM: No: Symptoms Reported Respiratory: Yes: Cough, Shortness of Breath. No: Orthopnea, Wheezing, Hemoptysis Cardiac (ROS): No: Symptoms Reported ABD/GI: No: Symptoms Reported Musculoskeletal: No: Symptoms Reported Integumentary: No: Symptoms Reported Neurological: No: Symptoms reported Hematologic/Lymphatic: No: Symptoms Reported *Physical Exam - Vital Signs Last Vital Signs Temp Pulse Resp BP Pulse Ox 97.9 F 94 H 24 H 138/78 97 11/15/18 14:54 11/15/18 14:54 11/15/18 14:54 11/15/18 14:54 11/15/18 14:54 - Physical Exam General Appearance: Yes: Nourished, Appropriately Dressed. No: Apparent Distress HEENT: positive: Nasal Congestion, Sinus Tenderness (frontal). negative: Pale Conjunctivae Neck: positive: Supple Respiratory/Chest: positive: Lungs Clear, Normal Breath Sounds. negative: Chest Tender, Respiratory Distress, Accessory Muscle Use, Wheezing Cardiovascular: positive: Regular Rhythm, Regular Rate. negative: Murmur Extremity: negative: Pedal Edema Integumentary: positive: Normal Color, Warm, Moist Neurologic: positive: Motor Strength 5/5 (ambulatory) Moderate Sedation - Procedure Monitoring Vital Signs: Procedure Monitoring Vital Signs Temperature 97.9 F 11/15/18 14:54 Pulse Rate 94 H 11/15/18 14:54 Respiratory Rate 24 H 11/15/18 14:54 Blood Pressure 138/78 11/15/18 14:54 O2 Sat by Pulse Oximetry (%) 97 11/15/18 14:54 ED Treatment Course - Medications Given in the ED: ED Medications Discontinued Medications Generic Name Dose Route Start Last Admin Trade Name Janina PRN Reason Stop Dose Admin Albuterol/Ipratropium 1 amp 11/15/18 14:55 11/15/18 15:14 Duoneb - NEB 11/15/18 14:56 1 amp ONCE ONE Administration Medical Decision Making - Medical Decision Making 11/15/18 15:28 Plain: Cough shortness of breath 1 month patient finished prednisone and yesterday and continues with Augmentin andcough medicine Exam patient receiving DuoNeb upon my arrival lungs clear to auscultation patient with noted raspy/absent voice Plan: Patient ordered x-ray from [facility]. Will review 11/15/18 15:58 Chest x-ray shows no acute pathology. Patient on exam with noted nasal congestion and frontal sinus tenderness. Pt currently on Augmentin. We will add Flonase to regimen *DC/Admit/Observation/Transfer Diagnosis at time of Disposition: Post-nasal drainage - Discharge Dispostion Disposition: HOME Condition at time of disposition: Good - Prescriptions Prescriptions: Fluticasone Prop 0.05% Nasal [Flonase -] 1 - 2 spray NS BID #1 spray.pump - Referrals - Patient Instructions Printed Discharge Instructions: DI for Sinusitis Additional Instructions: Please continue with augmentin but try using your nasal lavage along with newly prescribed flonase. Follow up with ENT if s/s continue - Post Discharge Activity
== END 2018-11-15 16:14 | disposition home or self-care (01) ==
LOC: JERFT 14:45
PROC: 3E0F7GC Introduction of Other Therapeutic Substance into Respiratory Tract, Via Natural or Artificial Opening (ICD-10-PCS; principal; 2018-11-15)
DX: J34.89 Other specified disorders of nose and nasal sinuses (principal); R09.82 Postnasal drip; I10 Essential (primary) hypertension; E78.00 Pure hypercholesterolemia, unspecified; I49.9 Cardiac arrhythmia, unspecified; N40.0 Benign prostatic hyperplasia without lower urinary tract symptoms
CPT/HCPCS: 71046-TC-FY; 99281-25

== ENCOUNTER 2018-12-09 14:30 | Emergency (ER) | payer OTHER, BC ==
--- NOTE | 2018-12-09 14:40 | PDOC ---
Rapid Medical Evaluation Time Seen by Provider: 12/09/18 14:32 Medical Evaluation: Allergies Allergy/AdvReac Type Severity Reaction Status Date / Time No Known Drug Allergies Allergy Verified 11/15/18 14:53 12/09/18 14:33 Pt presents for two months of upper abdominal pain. Was at the dentist when he had an episode of vomiting and dizziness. An ambulance was called. Pt currently on Clarythromycin. Exam: TTP of the epigastric region and LUQ. Lungs CTAB Orders: IV, labs Pt to proceed to ED for further evaluation PCP: Dr. Amezquita GI: Dr. Hadley Discharge Disposition - Diagnosis Abdominal pain - Referrals - Patient Instructions - Post Discharge Activity
[2018-12-09 14:41] VITALS: BP 142/95; PULSE 91; TEMP 98.1; BMI 25.7
--- NOTE | 2018-12-09 15:01 | PDOC ---
History of Present Illness - General Chief Complaint: Nausea/Vomiting Stated Complaint: VOMITING Time Seen by Provider: 12/09/18 14:32 - History of Present Illness Initial Comments: The patient is a 63M w/ a PMH of gastritis, reported hiatal hernia, HTN who presents for evaluation of N/V w/ associated lightheadedness. The patient states that he was at his dentist's office, experienced an episode of lightheadedness/N/V while there. He was told to wait there until his symptoms resolved; however, the lightheadedness did not so EMS was called. On arrival the patient states he does not currently feel nauseated while sitting. His lightheadedness is improved but not resolved. Denies vertiginous symptoms/room spinning. Endorses 3m cough, N/V, intermittent epigastric abdominal pain, reflux Denies fevers/chills, HUNTER, vision changes, chest pain, SOB, or changes in sensation GI: Dr. Hadley and has an appointment with him 12/11/2018 12/09/18 15:46 Past History - Past Medical History Allergies/Adverse Reactions: Allergies Allergy/AdvReac Type Severity Reaction Status Date / Time No Known Drug Allergies Allergy Verified 11/15/18 14:53 Home Medications: Ambulatory Orders Atenolol [Tenormin -] 25 mg PO DAILY #30 tablet 03/22/18 Losartan Potassium 25 mg PO DAILY #30 tablet 03/22/18 Albuterol Sulfate [Proair Hfa] 2 inh IH PRN PRN 11/15/18 Amoxicillin/Potassium Clav [Augmentin 875-125 Tablet] 1 each PO BID 11/15/18 Fluticasone Prop 0.05% Nasal [Flonase -] 1 - 2 spray NS BID #1 spray.pump Prednisone 10 mg PO ASDIR 11/15/18 Promethazine/Dextromethorphan [Promethazine-Dm Syrup] 10 ml PO PRN PRN 11/15/18 Meclizine HCl [Antivert -] 25 mg PO TID #21 tablet 12/09/18 Anemia: No Asthma: No Cancer: No Cardiac Disorders: Yes (IRREGULAR HEART BEAT) CVA: No COPD: No CHF: No Dementia: No Diabetes: No GI Disorders: Yes (REFLUX,GASTRITIS,GERD) Disorders: Yes (ENLARGED PROSTATE) HTN: Yes Hypercholesterolemia: Yes Liver Disease: No Seizures: No Thyroid Disease: No - Surgical History Abdominal Surgery: Yes (VENTRAL HERNIA REPAIR) Appendectomy: No Cardiac Surgery: No Cholecystectomy: No Lung Surgery: No Neurologic Surgery: No Orthopedic Surgery: Yes (BILAT ARTHROSCOPY, TWICE R KNEE) - Suicide/Smoking/Psychosocial Hx Smoking History: Never smoked Have you smoked in the past 12 months: No If you are a former smoker, when did you quit?: 1075 Hx Alcohol Use: No Drug/Substance Use Hx: No Substance Use Type: Alcohol, Marijuana Hx Substance Use Treatment: No Review of Systems - Review of Systems Able to Perform ROS?: Yes Comments:: GENERAL/CONSTITUTIONAL: No fever or chills. No weakness HEAD, EYES, EARS, NOSE AND THROAT: No change in vision. No ear pain or discharge. No sore throat CARDIOVASCULAR: No chest pain or shortness of breath RESPIRATORY: Denies hemoptysis GASTROINTESTINAL: per HPI GENITOURINARY: No dysuria, frequency, or change in urination MUSCULOSKELETAL: No joint or muscle swelling or pain. No neck or back pain SKIN: No rash NEUROLOGIC: No vertigo, loss of consciousness, or change in strength/sensation ENDOCRINE: No increased thirst. No abnormal weight change HEMATOLOGIC/LYMPHATIC: No anemia, easy bleeding, or history of blood clots ALLERGIC/IMMUNOLOGIC: No hives or skin allergy 12/09/18 17:32 Is the patient limited Turkish proficient: No *Physical Exam - Vital Signs Last Vital Signs Temp Pulse Resp BP Pulse Ox 98.1 F 91 H 20 142/95 96 12/09/18 14:32 12/09/18 14:32 12/09/18 14:32 12/09/18 14:32 12/09/18 14:32 - Physical Exam Comments: GENERAL: Awake, alert, and fully oriented, in no acute distress HEAD: No signs of trauma, normocephalic, atraumatic EYES: PERRLA, EOMI, sclera anicteric, conjunctiva clear ENT: Hearing grossly normal, nares patent, oropharynx clear without exudates. Moist mucosa LUNGS: No distress, speaks full sentences, clear to auscultation bilaterally HEART: Regular rate and rhythm, normal S1 and S2, no murmurs appreciated, peripheral pulses normal and equal bilaterally ABDOMEN: Soft, mild epigastric TTP, normoactive bowel sounds. No guarding, no rebound EXTREMITIES : Normal inspection, Normal range of motion, no edema. No clubbing or cyanosis NEUROLOGICAL: Cranial nerves II through XII grossly intact. Slow speech, no focal sensorimotor deficits SKIN: Warm, Dry 12/09/18 17:33 Moderate Sedation - Procedure Monitoring Vital Signs: Procedure Monitoring Vital Signs Temperature 98.1 F 12/09/18 14:32 Pulse Rate 91 H 12/09/18 14:32 Respiratory Rate 20 12/09/18 14:32 Blood Pressure 142/95 12/09/18 14:32 O2 Sat by Pulse Oximetry (%) 96 12/09/18 14:32 ED Treatment Course - LABORATORY CBC & Chemistry Diagram: 12/09/18 16:06 12/09/18 16:43 Medical Decision Making - Medical Decision Making The patient is a 63M w/ a history of gastritis, HTN, GERD, and reported hiatal hernia who presents for 3months of N/V which was today associated w/ lightheadedness while at a dentist's appointment. ED Course CMP, CBC CT A&P 12/09/18 16:50 No leukocytosis UA w/o evidence of UTI 12/09/18 17:01 Lytes wnl No SERGEY LFTs wnl 12/09/18 17:29 Pepcid, Zofran, IVF 12/09/18 19:23 CT A&P w/ IV contrast Impression: Slight increase in the size of previously visualized left renal parapelvic cysts. Small complex partially exophytic left renal cyst is again seen measuring 1.5 cm with peripheral calcifications. Multiple right renal cysts are again seen without interval change edging between 50 and [address]. On prior CT scan of the abdomen dated 07/20/2017, there appeared as hyperdense cysts and also measured between 50 and 75. Correlation with renal ultrasound or MRI could be obtained for better characterization of these cysts. There is no evidence of small bowel obstruction, enlarged lymph nodes, free air or free fluid in the abdomen pelvis. A few tiny diverticula mainly in the sigmoid colon without evidence of acute diverticulitis. Slightly prominent prostate gland. 12/09/18 19:39 Patient now describes chronic/current dizziness, ahsan with standing -Patient describes positional dizziness w/ intermittent room spinning -Reports being on meclizine in the past -Intermittent tinnitus --Orthostatic vitals w/ minimal variance ---Laying 131/86 ---Sitting 138/92 ---Standing 136/95 --Will give meclizine 25mg PO once --Head CT to r/o occult bleed --If neg will give neuro f/u --Patient ambulated in ED w/ home cane steadily but reported some 'wooziness' 12/09/18 20:07 CT head neg for acute subdural/epidural hemorrhage Trop I neg Plan for D/C w/ GI, neurology, and PCP f/u -For follow up of chronic nausea and NBNB vomiting as well as chronic intermittent vomiting Discharge instructions and return precautions given Patient in agreement and verbalized understanding Dispo: home 12/09/18 21:21 *DC/Admit/Observation/Transfer Diagnosis at time of Disposition: Dizziness Abdominal pain Qualifiers: Abdominal location: epigastric Qualified Code(s): R10.13 - Epigastric pain Nausea and vomiting Qualifiers: Vomiting type: unspecified Vomiting Intractability: non-intractable Qualified Code(s): R11.2 - Nausea with vomiting, unspecified - Discharge Dispostion Disposition: HOME Condition at time of disposition: Stable Decision to Admit order: No - Prescriptions Prescriptions: Meclizine HCl [Antivert -] 25 mg PO TID #21 tablet - Referrals Referrals: Jamie Amezquita MD [Primary Care Provider] - Hayes Hadley MD [Staff Physician] - Jose Shanks MD [Staff Physician] - Stevan Bonds MD [Staff Physician] - - Patient Instructions Printed Discharge Instructions: DI for Vomiting -- Adult Additional Instructions: You were seen in the Emergency Department today for evaluation of nausea and vomiting associated with lightheadedness. You CT scan did not show a hiatal hernia or evidence of acute GI structural abnormality. You have kidney cysts on both kidneys that appear stable from previous but you should still follow up with Nephrology (kidney doctor). Maintain your follow up with Dr. Hadley Sunday. Return to the Emergency Department if you develop fevers/chills, worsening symptoms, inability to tolerate food/drink, chest pain, trouble breathing, or any new/concerning symptoms. - Post Discharge Activity Forms/Work/School Notes: Back to Work
[2018-12-09 16:50] LABS: BASO % 0.4 % (0-2.0); EOS % 0.8 % (0-4.5); HEMATOCRIT 40.6 % (35.4-49); HEMOGLOBIN 13.5 GM/dL (11.7-16.9); LYMPH % 16.8 % (8-40); MCH 31.3 pg (25.7-33.7); MCHC 33.4 g/dl (32.0-35.9); MEAN CELL VOLUME 93.7 fl (80-96); MEAN PLT VOLUME 7.5 fl (7.5-11.1); MONO % 7.3 % (3.8-10.2); NEUT % 74.7 % (42.8-82.8); PLATELET COUNT 175 K/MM3 (134-434); RBC 4.33 M/mm3 (4.00-5.60); RDW 12.5 % (11.9-15.9); WHITE BLOOD COUNT 4.3 K/mm3 (4.0-10.0)
[2018-12-09 16:53] LABS: URINE APPEARANCE CLEAR; URINE BILIRUBIN NEGATIVE (<2.0 mg/dL); URINE COLOR STRAW; URINE GLUCOSE (UA) NEGATIVE (NEGATIVE); URINE KETONE NEGATIVE (NEGATIVE); URINE LEUK ESTERASE NEGATIVE (NEGATIVE); URINE NITRITE NEGATIVE (NEGATIVE); URINE PROTEIN NEGATIVE (NEGATIVE); URINE UROBILINOGEN NEGATIVE mg/dL (0.2-1.0)
[2018-12-09 17:01] LABS: INR 1.1 (0.83-1.09)
[2018-12-09 17:12] LABS: ALBUMIN 4.1 g/dl (3.4-5.0); ALK PHOS 59 U/L (45-117); ANION GAP 7 MMOL/L (8-16); BILIRUBIN,TOTAL 0.4 mg/dL (0.2-1); BLOOD UREA NITROGEN 12 mg/dL (7-18); CALCIUM 9.4 mg/dL (8.5-10.1); CHLORIDE 105 mmol/L (98-107); CO2 29 mmol/L (21-32); CREATININE 1.3 mg/dL (0.55-1.3); GLUCOSE,RANDOM 90 mg/dL (74-106); POTASSIUM 4.4 mmol/L (3.5-5.1); SGOT/AST 19 U/L (15-37); SGPT/ALT 35 U/L (13-61); SODIUM 141 mmol/L (136-145); TOT PROT 7.4 g/dl (6.4-8.2)
--- NOTE | 2018-12-09 17:31 | PDOC ---
Attending Attestation - HPI HPI: 12/09/18 17:34 The patient is a 63 year old male with a significant past medical history of GERD, hypertension, hypercholesterolemia, and dysrhythmia who presents to the emergency with nausea and vomiting for 2 months. The patient reports that his nausea and vomiting has been getting progressively worse since September. He states that his symptoms are intermittent. The patient reports that he was at his dentist appointment today when he began to experience his symptoms.He reports some associated lightheadedness and epigastric tenderness. He denies any vertigo , headache, dizziness, chest pain, shortness of breath or any other symptoms or complaints. Documentation prepared by Odalis Block, acting as medical registrar for Mirella Grossman MD. <Odalis Block - Last Filed: 12/09/18 17:34> - Resident Resident Name: Juan Daniel Ambrose - ED Attending Attestation I have performed the following: I have examined & evaluated the patient, The case was reviewed & discussed with the resident, I agree w/resident's findings & plan, Exceptions are as noted - Physicial Exam PE: 12/09/18 17:29 awake alert NAD lungs clear bilaterally heart rrr no mrg abd soft mild midline ttp over epigastrum, no rebound no guarding. no palp hernia. ext wwp no edema. no calf tenderness. nuero alert oriented x 3. - Medical Decision Making 12/09/18 17:31 differential hiatal hernia, gastritis, viral syndrome. pancreatitis. sbo colitis. plan labs ivf antiemtics. ct a/p 12/09/18 19:10 pt labs unremarkable awaiting ct results . signed out to oncoming attending. reasess with ct results, and trial po. if ct negative tolerating po dc and fu with lantin in 2 days. <Mirella Grossman - Last Filed: 12/09/18 19:13> Heart Score/ECG Review #1 General ECG Interpretation: Sinus Rhythm, Normal Rate (77), Normal Intervals, No acute ischemic changes <Mirella Grossman - Last Filed: 12/09/18 19:13>
[2018-12-09] MEDS ORDERED: FAMOTIDINE 20 MG/50 ML IVPB 20 MG/50 ML MG IVPB ONE ×2 (18:13→18:25)
[2018-12-09] MEDS ORDERED: ONDANSETRON 4 MG/2 ML VIAL IVPUSH ONE (18:13)
[2018-12-09] MEDS ORDERED: SODIUM CHLORIDE 0.9% 1000 ML INFUS.BAG IV ONE (18:13)
[2018-12-09] MEDS ORDERED: ONDANSETRON 4 MG/2 ML VIAL ONE (18:24)
--- NOTE | 2018-12-09 19:29 | PDOC ---
*Physical Exam - Vital Signs Last Vital Signs Temp Pulse Resp BP Pulse Ox 98.1 F 91 H 20 142/95 96 12/09/18 14:32 12/09/18 14:32 12/09/18 14:32 12/09/18 14:32 12/09/18 14:32 ED Treatment Course - LABORATORY CBC & Chemistry Diagram: 12/09/18 16:06 12/09/18 16:43 - ADDITIONAL ORDERS Additional order review: Laboratory Results 12/09/18 12/09/18 12/09/18 16:43 16:06 16:06 PT with INR 13.00 INR 1.10 H Sodium 141 Potassium 4.4 Chloride 105 Carbon Dioxide 29 Anion Gap 7 L BUN 12 Creatinine 1.3 Creat Clearance w eGFR 55.58 Random Glucose 90 Calcium 9.4 Total Bilirubin 0.4 AST 19 ALT 35 Alkaline Phosphatase 59 Total Protein 7.4 Albumin 4.1 Urine Color Straw Urine Appearance Clear Urine pH 6.0 Ur Specific [place] 1.003 L Urine Protein Negative Urine Glucose (UA) Negative Urine Ketones Negative Urine Blood Negative Urine Nitrite Negative Urine Bilirubin Negative Urine Urobilinogen Negative Ur Leukocyte Esterase Negative 12/09/18 16:06 RBC 4.33 MCV 93.7 MCHC 33.4 RDW 12.5 MPV 7.5 Neutrophils % 74.7 Lymphocytes % 16.8 D Monocytes % 7.3 Eosinophils % 0.8 Basophils % 0.4 - Medications Given in the ED: ED Medications Discontinued Medications Generic Name Dose Route Start Last Admin Trade Name Freq PRN Reason Stop Dose Admin Famotidine/Sodium Chloride 20 mg in 50 mls @ 100 mls/hr 12/09/18 18:13 18:33 Pepcid 20 Mg Premixed Ivpb - IVPB 12/09/18 18:42 100 mls/hr ONCE ONE Administration Ondansetron HCl 4 mg 12/09/18 18:13 12/09/18 18:33 Zofran Injection IVPUSH 12/09/18 18:14 4 mg ONCE ONE Administration Sodium Chloride 1,000 ml 12/09/18 18:13 12/09/18 18:32 Normal Saline - IV 12/09/18 18:14 1,000 ml ONCE ONE Administration Medical Decision Making - Medical Decision Making 12/09/18 21:32 Patient signed out pending reevaluation and CT scan results Prior to discharge patient states he's been feeling off balance for several months, similar to previous symptoms which were relieved with meclizine several years ago CT scan of the brain was ordered which showed no gross abnormality Orthostatics were unremarkable Meclizine 25 mg given in the emergency department with improvement Patient tolerated by mouth He will be discharged to follow-up with both neurology and gastroenterology for further evaluation He was recently seen by ENT Impression nausea vomiting Chronic intermittent dizziness *DC/Admit/Observation/Transfer Diagnosis at time of Disposition: Dizziness Abdominal pain Qualifiers: Abdominal location: epigastric Qualified Code(s): R10.13 - Epigastric pain Nausea and vomiting Qualifiers: Vomiting type: unspecified Vomiting Intractability: non-intractable Qualified Code(s): R11.2 - Nausea with vomiting, unspecified - Discharge Dispostion Disposition: HOME Condition at time of disposition: Stable - Referrals Referrals: Jamie Amezquita MD [Primary Care Provider] - Behzad Lyman MD [Staff Physician] - Hayes Hadley MD [Staff Physician] - - Patient Instructions Printed Discharge Instructions: DI for Vomiting -- Adult Additional Instructions: You were seen in the Emergency Department today for evaluation of nausea and vomiting associated with lightheadedness. You CT scan did not show a hiatal hernia or evidence of acute GI structural abnormality. You have kidney cysts on both kidneys that appear stable from previous but you should still follow up with Nephrology (kidney doctor). Maintain your follow up with Dr. Hadley Sunday. Return to the Emergency Department if you develop fevers/chills, worsening symptoms, inability to tolerate food/drink, chest pain, trouble breathing, or any new/concerning symptoms. - Post Discharge Activity Forms/Work/School Notes: Back to Work
[2018-12-09 19:37] LABS: LIPASE 115 U/L (73-393)
[2018-12-09] MEDS ORDERED: MECLIZINE HCL 25 MG TABLET (FP) PO ONE (20:05)
[2018-12-09] MEDS ORDERED: MECLIZINE HCL 12.5 MG TABLET ONE (20:08)
--- NOTE | 2018-12-10 16:44 | EKG ---
Test Reason : Blood Pressure : / mmHG Vent. Rate : 077 BPM Atrial Rate : 077 BPM P-R Int : 144 ms QRS Dur : 076 ms QT Int : 382 ms P-R-T Axes : 056 -25 020 degrees QTc Int : 432 ms NORMAL SINUS RHYTHM NORMAL ECG WHEN COMPARED WITH ECG OF 22-MAR-2018 18:31, NO SIGNIFICANT CHANGE WAS FOUND Confirmed by MD CLARISSA, RYLAND ([id number]) on 12/10/2018 4:44:18 PM Referred By: Confirmed By:RYLAND ROMO MD
== END 2018-12-09 21:33 | disposition home or self-care (01) ==
LOC: JER 14:30
PROC: 3E033GC Introduction of Other Therapeutic Substance into Peripheral Vein, Percutaneous Approach (ICD-10-PCS; principal; 2018-12-09)
PROC: 3E033GC Introduction of Other Therapeutic Substance into Peripheral Vein, Percutaneous Approach (ICD-10-PCS; 2018-12-09)
DX: R42 Dizziness and giddiness (principal); R10.13 Epigastric pain; R11.2 Nausea with vomiting, unspecified; I10 Essential (primary) hypertension; E78.00 Pure hypercholesterolemia, unspecified; N40.0 Benign prostatic hyperplasia without lower urinary tract symptoms; Z87.19 Personal history of other diseases of the digestive system
CPT/HCPCS: 36415; 70450-TC; 71046-TC-FY; 74177-TC; 80053; 81003; 83690; 84484; 85025; 85610; 93005; 93010; 96365; 96375; 99283-25; J7030

== ENCOUNTER 2019-04-16 07:03 | Day surgery (SDC) | payer OTHER, BC ==
[2019-04-15 11:31] VITALS: BMI 24.9
[2019-04-16 07:46] LABS: INR 0.97 (0.83-1.09); PROTHROMBIN TIME (PATIENT) 11.5 SEC (9.7-13.0)
[2019-04-16 07:49] LABS: ACTIVATED PTT 29.6 SECONDS (25.2-36.5)
[2019-04-16 07:50] LABS: PH,URINE 5.5 (5.0-8.0); URINE APPEARANCE CLEAR; URINE BILIRUBIN NEGATIVE (NEGATIVE); URINE COLOR YELLOW; URINE GLUCOSE (UA) NEGATIVE (NEGATIVE); URINE KETONE NEGATIVE (NEGATIVE); URINE LEUK ESTERASE NEGATIVE (NEGATIVE); URINE NITRITE NEGATIVE (NEGATIVE); URINE PROTEIN NEGATIVE (NEGATIVE); URINE UROBILINOGEN 0.2 mg/dL (0.2-1.0)
[2019-04-16] MEDS ORDERED: MIDAZOLAM HCL 2 MG/2 ML SINGLE DOSE VIAL ONE ×2 (08:25)
--- NOTE | 2019-04-16 08:59 | HP ---
[facility] - Chief Complaint Chief Complaint: left shoulder pain History of Present Illness: left shoulder impingement, RTC tear History Source: Patient Limitations to Obtaining History: No Limitations - Past Medical History Allergies/Adverse Reactions: Allergies Allergy/AdvReac Type Severity Reaction Status Date / Time No Known Drug Allergies Allergy Verified 04/16/19 07:57 Cardiovascular: Yes: HTN Gastrointestinal: Yes: GERD - Current Medications Current Medications: Home Medications Medication Instructions Recorded Atenolol [Tenormin -] 25 mg PO HS 04/15/19 Dexlansoprazole [Dexilant] 60 mg PO DAILY 04/15/19 Ondansetron [Zofran -] 4 mg PO PRN PRN 04/15/19 Prochlorperazine Maleate 10 mg PO PRN PRN 04/15/19 [Compazine] Satellite Physical Exam - Physical Examination Vital Signs: Vital Signs Period Temp Pulse Resp BP Sys/Jiang Pulse Ox Last 24 Hr 98.2 F 66 20 135/79 98 General Appearance: Well Nourished ENT: Clear Lung: Clear to auscultation Heart: Regular rate & rhythm Breasts: Soft Abdomen: Soft Extremities: No edema Satellite Impression/Plan - Impression/Plan Impression: left shoulder impingement syndrome, RTC tear Operative Procedure: left shoulder arthroscopy, subacromial decompression, RTC repair Date to be Performed: 04/16/19
[2019-04-16] MEDS ORDERED: ceFAZolin SODIUM 1 GM VIAL ONE (09:11)
[2019-04-16] MEDS ORDERED: ceFAZolin SODIUM 1 GM VIAL IVPB ONE (09:15)
[2019-04-16] MEDS ORDERED: oxyCODONE HCL 5 MG TABLET PO PRN (09:31)
[2019-04-16] MEDS ORDERED: ONDANSETRON 4 MG/2 ML VIAL IVPUSH PRN (09:31)
[2019-04-16] MEDS ORDERED: LACTATED RINGERS SOLUTION 1,000 ML IV SCH (09:45)
--- NOTE | 2019-04-16 10:33 | OP ---
Operative Note - Note: Operative Date: 04/16/19 ([facility]) Pre-Operative Diagnosis: left shoulder rct Operation: left shoulder arthroscopy with RCR, SAD Implants: 2 arthrex swivelocks Post-Operative Diagnosis: Same as Pre-op Surgeon: Todd Ryan Thermospray Operator: Robert Montemayor Anesthesiologist/GAMB CUTTER: Yadi Gaytan Anesthesia: General, Local Specimens Removed: shavings Estimated Blood Loss (mls): 5 Operative Report Dictated: Yes
--- NOTE | 2019-04-16 11:34 | OP ---
DATE OF OPERATION: 04/16/2019 PREOPERATIVE DIAGNOSIS: Left shoulder impingement syndrome and rotator cuff tear. POSTOPERATIVE DIAGNOSIS: Left shoulder impingement syndrome and rotator cuff tear. PROCEDURE: Left shoulder arthroscopy, subacromial decompression, distal clavicle excision, and arthroscopic rotator cuff repair. SURGEON: Annmarie Sandy MD ENVIRONMENTAL HEALTH TECHNOLOGIST: NICKY Aguilar PIPE TESTING TECHNICIAN: MONSERRAT Gaytan ANESTHESIA: Left interscalene block and LMA anesthesia. DRAINS: None. COMPLICATIONS: None. BLOOD LOSS: Minimal. BLOOD GIVEN: None. FLUID REPLACEMENT: 700 mL. DESCRIPTION OF PROCEDURE: The patient was brought to the operating room, peripheral IV placed, and anesthesia given, 2 g of IV Ancef was given. Patient was placed into the beach-chair position with ample padding throughout. The left upper extremity was prepped and draped in sterile fashion. The bony landmarks were marked out with a marking pen. Posterior portal was established. A diagnostic glenohumeral arthroscopy was performed. In the joint, things actually looked good. The patient had a normal bubble test. I did not see any obvious rotator cuff tear from the articular side. The glenohumeral joint looked good. There was no osteoarthritis. The labrum looked good. The biceps tendon looked good. Overall, the structures looked normal. The area was copiously irrigated and washed out. Next, our attention turned to the subacromial space. The subacromial space was extremely . It had a huge subacromial bony spur and a very large subclavicular spur and a lot of inflammatory bursitis. The lateral portal was established under direct visualization using a spinal needle. Using a combination of the ArthroCare Wand and the straight shaver, extensive debridement was done/soft tissue bursectomy. After this, subacromial soft tissue decompression was performed. Again, it revealed very large spurs on both the distal clavicle and undersurface of the distal acromion. They were taken down with a 5.5-mm oval jethro first in forward, then, fine-tuned in reverse, and then, the shaver were used to fine-tune it further. It created a lot more room for the rotator cuff and the humeral head. Next, an additional lateral subdeltoid bursectomy, and this revealed a crescent shaped full-thickness rotator cuff tear. There was a delamination portion to it, and that may explain why the air bubbles stayed in the glenohumeral joint. We put in 4 FiberWire sutures with the WorkFlowyion needle passer and then put in 2 Arthrex SwiveLock anchors, each with 4 tails/2 sutures. We did an anterior screw and a posterior screw, brought the entire rotator cuff tear down quite nicely. There was full-on coverage of the humeral head. It moved as a unit. Overall, it looked quite good. The area was copiously irrigated and washed out. All debris and saline were removed. The arthroscopy portals were closed with 3-0 nylon sutures. The area was then washed and dried, covered with Aquacel dressing. He was placed into a shoulder immobilizer, extubated. Total operative repair was about 45 minutes. He was brought down out of the beach-chair position into the ambulatory recovery room. ANNMARIE SANDY M.D. [id number]
[2019-04-16 15:09] VITALS: BP 118/78; PULSE 80; TEMP 98.2
--- NOTE | 2019-04-18 18:27 | PATH ---
Surgical Pathology Report Patient Name: BRAYAN GUEVARA JR Med. Rec. #: [id number] /Age/Gender: 1955 (Age: 63) / M Account: [id number] Location: [facility] SURGICAL Taken: 04/16/2019 Received: 04/16/2019 Reported: 04/18/2019 Physicians: Todd Ryan M.D. Specimen(s) Received LEFT SHOULDER SHAVINGS Clinical History Left shoulder impingement syndrome Final Diagnosis SHOULDER SHAVINGS, LEFT, ARTHROSCOPY: FRAGMENTS OF BENIGN CARTILAGE, DENSE FIBROCONNECTIVE TISSUE, ADIPOSE TISSUE, BONE, AND SKELETAL MUSCLE. Electronically Signed Lisette Dawson M.D. Gross Description Received in formalin, labeled "left shoulder shavings," is a 4.5 x 4.0 x 0.8 cm. aggregate of guzmán-yellow soft tissue fragments. A territory service representative portion is submitted in one cassette. /04/17/2019 saudi04/17/2019
== END 2019-04-16 15:31 | disposition home or self-care (01) ==
LOC: JASU-SURG 07:03
PROVIDERS: ATTEND Orthopaedic Surgery
PROC: 0LQ24ZZ Repair Left Shoulder Tendon, Percutaneous Endoscopic Approach (ICD-10-PCS; 2019-04-16)
PROC: 0PBB4ZZ Excision of Left Clavicle, Percutaneous Endoscopic Approach (ICD-10-PCS; 2019-04-16)
PROC: 0RNK4ZZ Release Left Shoulder Joint, Percutaneous Endoscopic Approach (ICD-10-PCS; principal; 2019-04-16 09:00)
DX: M75.42 Impingement syndrome of left shoulder (principal); M75.102 Unspecified rotator cuff tear or rupture of left shoulder, not specified as traumatic
CPT/HCPCS: 36415; 81003; 85610; 85730; 88304-TC; 94760

== ENCOUNTER 2020-10-30 15:50 | Emergency (ER) | payer BC, OTHER ==
[2020-10-30 16:14] VITALS: BP 127/80; PULSE 81; BMI 24.1
[2020-10-30] MEDS ORDERED: ACETAMINOPHEN 325 MG TABLET (FP) PO ONE (16:40)
[2020-10-30] MEDS ORDERED: ACETAMINOPHEN 500 MG TABLET (FP) ONE (16:41)
== END 2020-10-30 18:30 | disposition home or self-care (01) ==
LOC: JERFT 15:50
DX: M54.5 Low back pain (principal); M54.2 Cervicalgia
CPT/HCPCS: 72050-TC-FY; 72100-TC-FY; 99284-25